=== PATIENT | female | born 1970 ===

== ENCOUNTER 2020-12-11 21:09 | Emergency (ER) | payer OTHER, SELFPAY ==
--- NOTE | 2020-12-11 | ECG_ITS ---
Test Reason : CHEST PAIN Blood Pressure : / mmHG Vent. Rate : 072 BPM Atrial Rate : 072 BPM P-R Int : 156 ms QRS Dur : 086 ms QT Int : 414 ms P-R-T Axes : 067 040 054 degrees QTc Int : 453 ms Normal sinus rhythm Normal ECG No previous ECGs available Referred By: Generic ED Physician Electronically Signed By:YAKELIN VORA
[2020-12-11 21:20] VITALS: BP 180/105; PULSE 81; RESP 16; TEMP 36.6; O2SAT 100; BMI 20.9
[2020-12-11 21:55] LABS: Hematocrit 42.8 % (37-47); Hemoglobin 14.2 g/dl (12.0-16.0); Mean Corpuscular HGB Conc 33.2 g/dl (31.0-35.0); Mean Corpuscular Hemoglobin 29.1 pg (27.0-33.0); Mean Corpuscular Volume 87.7 fL (80-98); Mean Platelet Volume 12.2 fL (9.4-12.3); Platelet Count 155 X10*3/uL (160-400); Red Blood Count 4.88 X10*6/uL (4.20-5.50); Red Cell Distribution Width 13.2 % (11.0-16.0)
[2020-12-11 21:58] LABS: Glucose Urine UA NEG (NEG); Leukocyte Esterase Urine NEG (NEG); Nitrite Urine NEG (NEG); Urine Blood NEG (NEG); Urine Ketones NEG (NEG); Urine Protein NEG (NEG-TRACE)
[2020-12-11 21:59] LABS: Appearance Urine CLEAR; Color Urine YELLOW
[2020-12-11 22:11] LABS: WBC ABN SCTR FOR CBC 1; White Blood Count 7.1 X10*3/uL (4.8-10.8)
[2020-12-11 22:18] LABS: Anion Gap 14 (12-20); Band Neutrophils Percent 0 % (3-5); Basophils Abs Manual 0.1 X10*3/uL (0.0-0.3); Basophils Percent Manual 2 % (0-1); Blood Urea Nitrogen 25 mg/dL (9-16); Calcium 9.2 mg/dL (8.4-10.2); Carbon Dioxide 30 mmol/L (22-29); Chloride 98 mmol/L (96-108); Creatinine Clr Calc Pharmacy 73.9; Eosinophils Absolute Manual 0.1 X10*3/UL (0.0-0.8); Eosinophils Percent Manual 2 % (0-4); Estimated Glomerular Filt Rate > 60; Glucose Random 87 mg/dL (60-115); Lymphocytes Absolute Manual 3.8 X10*3/uL (0.6-4.8); Lymphocytes Percent Manual 53 % (20-40); Monocytes Absolute Manual 0.2 X10*3/uL (0.0-1.2); Monocytes Percent Manual 3 % (2-11); Neutrophils Absolute Manual 2.8 X10*3/uL (2.2-7.9); Neutrophils Percent Manual 40 % (45-73); Potassium 3.7 mmol/L (3.3-5.1); Sodium 138 mmol/L (135-145)
[2020-12-11 22:19] LABS: RBC Morphology NORMAL
[2020-12-11 22:20] LABS: Large Platelet PRESENT; Platelet Estimate SLIGHTLY DECREASED (NORMAL); Platelet Morphology Comment NORMAL
[2020-12-11 22:25] LABS: Troponin-I High Sensitivity < 3.5 ng/L (<3.5-17.0)
== END 2020-12-11 23:30 | disposition left against medical advice (07) ==
PROVIDERS: Emergency Provider Emergency Medicine
DX: R07.9 Chest pain, unspecified (principal)
CPT/HCPCS: 36415; 80048; 81003; 84484; 85007; 85025; 85027; 93005; 99282; 99283

== ENCOUNTER 2020-12-15 09:40 | Emergency (ER) | payer OTHER, SELFPAY ==
--- NOTE | ~2020-12-15 | CT_ITS ---
EXAMINATION: CT ABDOMEN AND PELVIS WITHOUT CONTRAST CLINICAL INFORMATION: Diffuse abdominal pain and constipation COMPARISON: None TECHNIQUE: Multidetector volumetric imaging was performed from the superior aspect of the liver through the pubic symphysis. Sagittal and coronal reformatted images were obtained on the technologist's workstation. This CT examination was performed using dose optimization techniques as appropriate, variously including the following: *Automated exposure control *Adjustment of mA and/or kV according to patient size (this includes techniques or standardized protocols for targeted exams where dose is matched to indication/reason for exam; i.e. extremities or head) *Use of iterative reconstruction technique DLP: 369 mGy-cm FINDINGS: LUNG BASES: There is platelike atelectasis left lower lobe lateral segment. Heart size is normal. LIVER, GALLBLADDER, AND BILIARY TREE: The liver is normal in size, shape, and attenuation. No focal hepatic lesion or biliary ductal dilatation is present. The gallbladder is unremarkable with no evidence of radiopaque gallstones, gallbladder wall thickening, or obvious pericholecystic inflammatory changes. PANCREAS: Unremarkable. SPLEEN: The spleen is unremarkable. A small accessory 9 mm splenule along the anterior border. ADRENAL GLANDS: Unremarkable. KIDNEYS AND URETERS: The kidneys are normal in size, shape, and attenuation. There is a punctate 1 mm radiopaque calculi or calcification upper pole cortex left kidney. No additional radiopaque calculi or calcifications seen. There is no hydronephrosis.There is a partially exophytic 3.1 cm cyst lower pole right kidney. BLADDER: Unremarkable. GASTROINTESTINAL TRACT: There is scattered stool and gas seen throughout the colon without significant distention. The small bowel loops are normal caliber. Appendix is not visualized. Small lymph nodes are seen in the ileocecal mesentery. ABDOMINAL WALL: No significant hernia is appreciated. LYMPH NODES: Normal. VASCULAR: Unremarkable. PELVIC VISCERA: The uterus is midline. No adnexal mass or free fluid seen. There is no abnormal lymph nodes or hernia. OSSEOUS STRUCTURES: Mild degenerative disc changes L5-S1 disc level with ventral spondylosis. CT/CT abdomen pelvis wo con IMPRESSION: No acute process seen in the abdomen. Mild constipation. Small cyst lower pole right kidney.
--- NOTE | ~2020-12-15 | XR_ITS ---
EXAMINATION: XR CHEST CLINICAL INFORMATION: Chest pain COMPARISON: None TECHNIQUE: 2 views of the chest were obtained. FINDINGS: No significant abnormality is noted involving the heart, lungs, mediastinum, bony thorax or soft tissues. XR/XR chest 2V IMPRESSION: Unremarkable examination.
[2020-12-15 11:20] VITALS: BP 155/93; PULSE 62; RESP 18; TEMP 36.7; O2SAT 100; BMI 23.1
--- NOTE | 2020-12-15 11:23 | ECG_ITS ---
Test Reason : CHEST PAIN Blood Pressure : / mmHG Vent. Rate : 061 BPM Atrial Rate : 061 BPM P-R Int : 132 ms QRS Dur : 088 ms QT Int : 428 ms P-R-T Axes : 012 055 052 degrees QTc Int : 430 ms Normal sinus rhythm Normal ECG When compared with ECG of 11-DEC-2020 21:32, No significant change was found Referred By: Generic ED Physician Electronically Signed By:YAKELIN VORA
[2020-12-15 12:21] LABS: MANUAL DIFF FLAG NO
[2020-12-15 12:29] LABS: Basophils Percent Auto 0.4 % (0-2); Eosinophils Absolute Auto 0.1 X10*3/uL (0.0-0.4); Eosinophils Percent Auto 1.1 % (0-4); Hematocrit 41.5 % (37-47); Hemoglobin 13.7 g/dl (12.0-16.0); Imm Gran Abs Auto 0.01 X10*3/uL (0.00-0.03); Imm Gran Pct Auto 0.2 % (0.0-0.4); Lymphocytes Absolute Auto 2.4 X10*3/uL (1.2-4.9); Lymphocytes Percent Auto 52.6 % (20-40); Mean Corpuscular Hemoglobin 28.9 pg (27.0-33.0); Mean Corpuscular Volume 87.6 fL (80-98); Mean Platelet Volume 12.2 fL (9.4-12.3); Monocytes Absolute Auto 0.5 X10*3/uL (0.1-1.2); Monocytes Percent Auto 9.7 % (2-11); Neutrophils Absolute Auto 1.7 X10*3/uL (2.0-8.3); Platelet Count 142 X10*3/uL (160-400); Red Blood Count 4.74 X10*6/uL (4.20-5.50); Red Cell Distribution Width 13.2 % (11.0-16.0); White Blood Count 4.6 X10*3/uL (4.8-10.8)
[2020-12-15 12:43] LABS: Anion Gap 11 (12-20); Blood Urea Nitrogen 19 mg/dL (9-16); Calcium 9.6 mg/dL (8.4-10.2); Carbon Dioxide 34 mmol/L (22-29); Chloride 100 mmol/L (96-108); Creatinine Clr Calc Pharmacy 70.1; Estimated Glomerular Filt Rate > 60; Glucose Random 92 mg/dL (60-115); Potassium 3.5 mmol/L (3.3-5.1); Sodium 141 mmol/L (135-145)
[2020-12-15 12:47] LABS: Troponin-I High Sensitivity < 3.5 ng/L (<3.5-17.0)
--- NOTE | 2020-12-15 13:08 | ED_ITS ---
HPI - General Adult General Chief complaint: General Medical Stated complaint: chest and stomach pain Time Seen by Provider: 12/15/20 12:57 Source: patient Mode of arrival: ambulatory Limitations: no limitations History of Present Illness HPI narrative: 50-year-old female with a past medical history of hypertension, high cholesterol here with intermittent chest and abdominal pain for the last 2 months. Patient tells me that she has had central chest pain which is worse with deep breathing and palpation and is not worsened with exertion or. No associated diaphoresis, nausea, vomiting, shortness of breath, leg swelling or pain. Also complaining of diffuse abdominal pain which is constant, diffuse, sharp. N o vomiting or diarrhea. She does have constipation and her last bowel movement was 3 days ago. Taking cybj-zsn-qhbtzry stool softeners with continued symptoms. No urinary symptoms, fevers, chills Onset (ago): week(s) Related Data Previous Rx's Medication Instructions Recorded docusate sodium [Colace] 100 mg PO BID #20 cap 12/15/20 polyethylene glycol 3350 [Miralax] 17 g PO DAILY #119 g 12/15/20 Allergies Allergy/AdvReac Type Severity Reaction Status Date / Time No Known Allergies Allergy Verified 12/15/20 11:20 [No Known Allergies*] Review of Systems Review of Systems: Yes all other systems are reviewed and are negative Constitutional: Constitutional: Reports no additional constitutional complaints, Denies body ache(s), Denies chills, Denies fever(s), Denies headache(s) and Denies weakness Eyes: Eyes: Reports no additional eye complaints and Denies change in vision ENT: Reports system reviewed and no additional complaints, except as documented, Denies dizziness, Denies headache(s), Denies nasal congestion, Den ies nasal discharge and Denies neck pain Cardiovascular: Cardiovascular: Reports no additional cardiovascular complaints, Reports chest pain, Denies leg edema and Denies dyspnea Respiratory: Respiratory: Reports no additional respiratory complaints, Denies cough and Denies dyspnea Gastrointestinal: Gastrointestinal: Reports no additional gastrointestinal complaints, Reports abdominal pain, Reports constipation, Denies diarrhea, Denies nausea and Denies vomiting Genitourinary: Genitourinary: Reports no additional female genitourinary complaints and Denies urinary incontinence Musculoskeletal: Musculoskeletal: Reports no additional musculoskeletal complaints, Denies back pain, Denies arthralgias, Denies joint swelling, Denies neck pain, Denies numbness and Denies tingling Integumentary/Breasts: Skin/Breast: Reports system reviewed and no additional complaints, except as docu and Denies rash Neurologic: Reports system reviewed and no additional complaints, except as documented, Denies Abnormal speech present, Denies dizziness, Denies headache(s), Denies numbness, Denies tingling and Denies weakness PMFSH Past Medical History Attestation statement: The following information was validated with the patient. Source: old records reviewed and nursing notes reviewed Medical History Hypercholesteremia Hypertension Social History Social History Smoking Status: Never smoker Use of substances other than those prescribed or required for medical reasons: No Advance Directives: No Advance Directives Information Provided: No Physical Exam Vital Signs: Vital Signs: Last Vital Signs Temp 98.1 F 12/15/20 15:58 Pulse 77 12/15/20 15:58 Resp 18 12/15/20 15:58 BP 124/76 12/15/20 15:58 Pulse Ox 98 12/15/20 15:58 Body Mass Index 23.1 Const: General: cooperative, healthy appearing, comfortable and no acute distress Orientation/consciousness: patient oriented x3 Limitations: no limitations HENMT: Head: Yes normal to inspection Ears: hearing grossly normal bilaterally General nose exam: Normal external nose present Face and sinus: Yes normal facial exam Mouth: Normal oral and palatal mucosa present Throat: Yes posterior oropharynx normal Eyes: General: appearance normal, both eyes and all related structures Pupils: Equal, round and reactive pupils present Neck: Neck: Yes normal visual inspection Chest: Chest palpation & inspection: normal inspection of the chest Resp: Effort & Inspection: normal respiratory effort Auscultation: clear to auscultation bilaterally Cardio: Rate: regular rate Rhythm: regular rhythm Peripheral pulses: Peripheral pulses 2+ throughout GI: Inspection: Yes normal to inspection Palpation (GI): Soft to palpation and nontender Auscultation: normal bowel sounds Back/Spine/Pelvis: Thoracic/Lumbar Spine: thoracic and lumbar spine normal to inspection Skin: General skin exam: no rashes or lesions noted Neuro: General: patient oriented x3, no focal motor deficits and normal sensation to monofilament Cranial nerves: Yes Equal, round and reactive pupils present Cognition (Neuro): normal cognition Speech: No Abnormal speech present Gait exam (Neuro): Normal gait present Motor exam (neuro): 5/5 motor strength present throughout Extrem: General: Yes normal to inspection Course Course Course Narrative: 50-year-old female with a past medical history of hypertension and hyperlipidemia here with diffuse abdominal and chest pain for several weeks to months. Also complaining constipation. Will need chest x-ray, EKG, labs, CT A/P. 1600-labs are unremarkable with the exception of mild leukopenia and mild thrombocytopenia. Chest x-ray unremarkable. EKG shows no ischemic changes. CT abdomen and pelvis shows alpr-zo-ftlskqlo constipation with no other acute finding. Repeat abdominal exam is benign. No focal tenderness just mild diffuse tenderness. Chest wall pain is more atypical and more musculoskeletal on exam. Reviewed worrisome signs and symptoms and when to return to the emergency department. Comfortable discharge home. Medical Decision Making MDM Narrative Medical decision making narrative: acs, pna, chest wall pain, pe-less likely ACS with unremarkable EKG, symptoms greater than several weeks and negative troponin. Less likely pneumonia with negative chest x-ray. Less likely PE with no hypoxia or tachycardia and no clinical signs and symptoms of a DVT. SBO, constipation. Less likely SBO with negative CT Medical Records Medical records reviewed: Yes I reviewed the patient's medical records. Lab Data Lab results reviewed: Yes I reviewed the patient's lab results. Result diagrams: 12/15/20 12:06 12/15/20 12:06 Labs: Lab Results 12/15/20 12/15/20 12/15/20 Range/Units 12:06 12:06 12:06 WBC 4.6 L (4.8-10.8) X10*3/uL RBC 4.74 (4.20-5.50) X10*6/uL Hgb 13.7 (12.0-16.0) g/dl Hct 41.5 (37-47) % MCV 87.6 (80-98) fL MCH 28.9 (27.0-33.0) pg MCHC 33.0 (31.0-35.0) g/dl RDW 13.2 (11.0-16.0) % Plt Count 142 L (160-400) X10*3/uL MPV 12.2 (9.4-12.3) fL Immature Gran % (Auto) 0.2 (0.0-0.4) % Neut % (Auto) 36.0 L (45-73) % Lymph % (Auto) 52.6 H (20-40) % [place] % (Auto) 9.7 (2-11) % Eos % (Auto) 1.1 (0-4) % Baso % (Auto) 0.4 (0-2) % Lymph # (Auto) 2.4 (1.2-4.9) X10*3/uL [place] # (Auto) 0.5 (0.1-1.2) X10*3/uL Eos # (Auto) 0.1 (0.0-0.4) X10*3/uL Baso # (Auto) 0.0 (0.0-0.2) X10*3/uL Abs Immat Gran (auto) 0.01 (0.00-0.03) X10*3/uL Absolute Neuts (auto) 1.7 L (2.0-8.3) X10*3/uL Absolute Nucleated RBC 0.000 (0.0-0.012) X10*3/uL Nucleated RBC % (auto) 0.0 (0.0-0.2) /100WBC Hold Blue Top SEE NOTE Sodium 141 (135-145) mmol/L Potassium 3.5 (3.3-5.1) mmol/L Chloride 100 (96-108) mmol/L Carbon Dioxide 34 H (22-29) mmol/L Anion Gap 11 L (12-20) BUN 19 H (9-16) mg/dL Creatinine 0.81 (0.5-1.4) mg/dL Estim Creat Clear Calc 70.1 Estimated GFR > 60 Random Glucose 92 (60-115) mg/dL Calcium 9.6 (8.4-10.2) mg/dL Troponin I High Sens (<3.5-17.0) ng/L Lipase 21 (8-78) U/L Urine Color Urine Appearance Urine pH (5.0-8.0) Ur Specific [place] (1.005-1.025) Urine Protein (NEG-TRACE) MG/DL Urine Glucose (UA) (NEG) MG/DL Urine Ketones (NEG) MG/DL Urine Blood (NEG) Urine Nitrite (NEG) Ur Leukocyte Esterase (NEG) COVID-19 (RAYMUNDO) (Negative) COVID-19 Clin Com 12/15/20 12/15/20 12/15/20 Range/Units 12:06 13:25 13:25 WBC (4.8-10.8) X10*3/uL RBC (4.20-5.50) X10*6/uL Hgb (12.0-16.0) g/dl Hct (37-47) % MCV (80-98) fL MCH (27.0-33.0) pg MCHC (31.0-35.0) g/dl RDW (11.0-16.0) % Plt Count (160-400) X10*3/uL MPV (9.4-12.3) fL Immature Gran % (Auto) (0.0-0.4) % Neut % (Auto) (45-73) % Lymph % (Auto) (20-40) % [place] % (Auto) (2-11) % Eos % (Auto) (0-4) % Baso % (Auto) (0-2) % Lymph # (Auto) (1.2-4.9) X10*3/uL [place] # (Auto) (0.1-1.2) X10*3/uL Eos # (Auto) (0.0-0.4) X10*3/uL Baso # (Auto) (0.0-0.2) X10*3/uL Abs Immat Gran (auto) (0.00-0.03) X10*3/uL Absolute Neuts (auto) (2.0-8.3) X10*3/uL Absolute Nucleated RBC (0.0-0.012) X10*3/uL Nucleated RBC % (auto) (0.0-0.2) /100WBC Hold Blue Top Sodium (135-145) mmol/L Potassium (3.3-5.1) mmol/L Chloride (96-108) mmol/L Carbon Dioxide (22-29) mmol/L Anion Gap (12-20) BUN (9-16) mg/dL Creatinine (0.5-1.4) mg/dL Estim Creat Clear Calc Estimated GFR Random Glucose (60-115) mg/dL Calcium (8.4-10.2) mg/dL Troponin I High Sens < 3.5 (<3.5-17.0) ng/L Lipase (8-78) U/L Urine Color YELLOW Urine Appearance CLEAR Urine pH 6.5 (5.0-8.0) Ur Specific [place] 1.025 (1.005-1.025) Urine Protein NEG (NEG-TRACE) MG/DL Urine Glucose (UA) NEG (NEG) MG/DL Urine Ketones NEG (NEG) MG/DL Urine Blood NEG (NEG) Urine Nitrite NEG (NEG) Ur Leukocyte Esterase NEG (NEG) COVID-19 (RAYMUNDO) Negative (Negative) COVID-19 Clin Com See Note Imaging Data Chest x-ray: Attestation: I personally reviewed and interpreted this imaging study as follows: Radiologist's impression: EXAMINATION: XR CHEST CLINICAL INFORMATION: Chest pain COMPARISON: None TECHNIQUE: 2 views of the chest were obtained. FINDINGS: No significant abnormality is noted involving the heart, lungs, mediastinum, bony thorax or soft tissues. XR/XR chest 2V IMPRESSION: Unremarkable examination. CT scan - abdomen: Attestation: I personally reviewed and interpreted this imaging study as follows: Radiologist's impression: EXAMINATION: CT ABDOMEN AND PELVIS WITHOUT CONTRAST CLINICAL INFORMATION: Diffuse abdominal pain and constipation COMPARISON: None TECHNIQUE: Multidetector volumetric imaging was performed from the superior aspect of the liver through the pubic symphysis. Sagittal and coronal reformatted images were obtained on the technologist's workstation. This CT examination was performed using dose optimization techniques as appropriate, variously including the following: *Automated exposure control *Adjustment of mA and/or kV according to patient size (this includes techniques or standardized protocols for targeted exams where dose is matched to indication/reason for exam; i.e. extremities or head) *Use of iterative reconstruction technique DLP: 369 mGy-cm FINDINGS: LUNG BASES: There is platelike atelectasis left lower lobe lateral segment. Heart size is normal. LIVER, GALLBLADDER, AND BILIARY TREE: The liver is normal in size, shape, and attenuation. No focal hepatic lesion or biliary ductal dilatation is present. The gallbladder is unremarkable with no evidence of radiopaque gallstones, gallbladder wall thickening, or obvious pericholecystic inflammatory changes. PANCREAS: Unremarkable. SPLEEN: The spleen is unremarkable. A small accessory 9 mm splenule along the anterior border. ADRENAL GLANDS: Unremarkable. KIDNEYS AND URETERS: The kidneys are normal in size, shape, and attenuation. There is a punctate 1 mm radiopaque calculi or calcification upper pole cortex left kidney. No additional radiopaque calculi or calcifications seen. There is no hydronephrosis.There is a partially exophytic 3.1 cm cyst lower pole right kidney. BLADDER: Unremarkable. GASTROINTESTINAL TRACT: There is scattered stool and gas seen throughout the colon without significant distention. The small bowel loops are normal caliber. Appendix is not visualized. Small lymph nodes are seen in the ileocecal mesentery. ABDOMINAL WALL: No significant hernia is appreciated. LYMPH NODES: Normal. VASCULAR: Unremarkable. PELVIC VISCERA: The uterus is midline. No adnexal mass or free fluid seen. There is no abnormal lymph nodes or hernia. OSSEOUS STRUCTURES: Mild degenerative disc changes L5-S1 disc level with ventral spondylosis. CT/CT abdomen pelvis wo con IMPRESSION: No acute process seen in the abdomen. Mild constipation. Small cyst lower pole right kidney. ECG Data Attestation: I personally reviewed and interpreted this ECG as follows: Interpretation: Normal sinus rhythm Normal ECG When compared with ECG of 11-DEC-2020 21:32, No significant change was found rate 61, normal MO, normal QRS, normal QT Discharge Plan Discharge Clinical Impression: Chest wall pain, Constipation Patient Disposition: Home, Self-Care Instructions: Constipation (ED), Chest Wall Pain (ED) Additional Instructions: Drink plenty of fluids like prune juice and pear juice Eat fiber Follow-up with your primary care doctor as discussed Prescriptions: New polyethylene glycol 3350 [Miralax] 17 gram/dose powder 17 g PO DAILY Qty: 119 RF: 0 docusate sodium [Colace] 100 mg capsule 100 mg PO BID Qty: 20 RF: 0 Interventions: ED Discharge Assessment Last Done: 12/15/20 15:59 Discharge Date/Time: 12/15/20 15:59
[2020-12-15 13:18] VITALS: BP 141/81; PULSE 60; RESP 18; O2SAT 100
[2020-12-15 13:30] LABS: Lipase 21 U/L (8-78)
[2020-12-15 13:41] LABS: Appearance Urine CLEAR; Color Urine YELLOW; Glucose Urine UA NEG (NEG); Leukocyte Esterase Urine NEG (NEG); Nitrite Urine NEG (NEG); PH 6.5 (5.0-8.0); Specific Gravity - Urine 1.025 (1.005-1.025); Urine Blood NEG (NEG); Urine Ketones NEG (NEG); Urine Protein NEG (NEG-TRACE)
[2020-12-15 14:08] LABS: COVID-19 Test Negative (Negative)
[2020-12-15 15:58] VITALS: BP 124/76; PULSE 77; RESP 18; TEMP 36.7; O2SAT 98
== END 2020-12-15 15:59 | disposition home or self-care (01) ==
PROVIDERS: Nurse Practitioner Family; Emergency Provider Emergency Medicine
DX: R07.89 Other chest pain (principal); K59.00 Constipation, unspecified; I10 Essential (primary) hypertension; Z20.822 Contact with and (suspected) exposure to COVID-19
CPT/HCPCS: 36415; 71046; 74176; 80048; 81003; 83690; 84484; 85025; 87635; 93005; 99284

== ENCOUNTER 2021-10-15 14:02 | Outpatient (REF) | payer OTHER, SELFPAY ==
--- NOTE | ~2021-10-15 | MM_ITS ---
EXAMINATION: MM SCREENING DIGITAL BREAST TOMOSYNTHESIS, BILATERAL CLINICAL INFORMATION: Screening. Asymptomatic. The lifetime risk of breast cancer based on the Tyrer-Cuzick Model is 5.6%. COMPARISON: Mammography: April 30, 2020 and studies dating back to January 18, 2014 TECHNIQUE: Digital breast tomosynthesis is performed in both the craniocaudal and mediolateral oblique views along with computer-aided detection (CAD). Synthesized 2D images are generated from the tomosynthesis. FINDINGS: The breasts are extremely dense, which lowers the sensitivity of mammography (ACR BI-RADS breast composition Category d). There are no significant masses, abnormal calcifications, or other abnormalities. MM/MM tomosynthesis screening BI IMPRESSION: There are no significant changes from prior study. ASSESSMENT: BI-RADS 1: Negative RECOMMENDATION: Routine annual mammography screening. This patient's information was entered into a reminder system with a target due date for their next mammogram.
== END 2021-10-15 14:03 | disposition home or self-care (01) ==
LOC: HO.MAMMO 14:02
PROVIDERS: PCP Internal Medicine; Visit Provider Internal Medicine
DX: Z12.31 Encounter for screening mammogram for malignant neoplasm of breast (principal)
CPT/HCPCS: 77063; 77067

== ENCOUNTER 2022-10-18 09:12 | Outpatient (REF) | payer OTHER, SELFPAY ==
--- NOTE | ~2022-10-18 | MM_ITS ---
EXAMINATION: MM SCREENING DIGITAL BREAST TOMOSYNTHESIS, BILATERAL CLINICAL INFORMATION: Screening. Asymptomatic. The lifetime risk of breast cancer based on the Tyrer-Cuzick Model is 6%. COMPARISON: Mammography: 10/15/2021, 04/30/2020, 04/25/2019, 03/28/2018, 02/28/2017 TECHNIQUE: Digital breast tomosynthesis is performed in both the craniocaudal and mediolateral oblique views along with computer-aided detection (CAD). Synthesized 2D images are generated from the tomosynthesis. FINDINGS: The breasts are heterogeneously dense, which may obscure small masses (ACR BI-RADS breast composition Category c). There is fibronodular parenchymal pattern, left side similar to prior studies. Neither breast shows abnormal calcifications. The axilla and skin contours are unremarkable. Right CC view has questionable asymmetric density central outer breast 6.5 cm from nipple. Tomography suggests probable summation artifact. Patient will be recalled to fully characterize. MM/MM tomosynthesis screening BI IMPRESSION: Right: -Subtle asymmetric density central outer breast, suspected summation artifact. Left: -No mammographic evidence of malignancy. ASSESSMENT: BI-RADS 0: Incomplete - Need Additional Imaging Evaluation RECOMMENDATION: 1. Additional views of the right breast (spot CC, rolled CC x2 2. Targeted ultrasound if warranted after review of the additional views. 3. Radiology department staff will contact the patient for additional imaging. This patient's information was entered into a reminder system with a target due date for their next mammogram.
== END 2022-10-18 09:13 | disposition home or self-care (01) ==
LOC: HO.MAMMO 09:12
PROVIDERS: Visit Provider Internal Medicine
DX: Z12.31 Encounter for screening mammogram for malignant neoplasm of breast (principal)
CPT/HCPCS: 77063; 77067

== ENCOUNTER 2022-10-29 09:13 | Outpatient (REF) | payer OTHER, SELFPAY ==
--- NOTE | ~2022-10-29 | US_ITS ---
EXAMINATION: MM DIAGNOSTIC DIGITAL BREAST TOMOSYNTHESIS, RIGHT Targeted right breast ultrasound CLINICAL INFORMATION: Asymmetry lateral aspect of the right breast. COMPARISON: Mammography: October 18, 2022 and studies dating back to February 24, 2016. TECHNIQUE: Digital breast tomosynthesis is performed. 2D images are generated from the tomosynthesis. The following views are obtained: Rolled craniocaudal views and spot compression craniocaudal view. Targeted right breast ultrasound. FINDINGS: The breasts are extremely dense, which lowers the sensitivity of mammography (ACR BI-RADS breast composition Category d). Additional views do not definitely demonstrate region of irregular parenchymal asymmetry; however, with the very dense breast parenchyma present a density could be obscured. Targeted right breast ultrasound to the lateral aspect did not demonstrate any abnormal cystic or solid mass. No region of abnormal distal sound shadowing. No edematous change within the parenchyma is seen. Results are discussed with the patient at time of visit. US/US breast RT limited IMPRESSION: No mammographic evidence of malignancy. Right breast density appears to represent superimposition of fibroglandular tissue. ASSESSMENT: BI-RADS 1: Negative RECOMMENDATION: Routine annual mammography screening due in 12 months. This patient's information was entered into a reminder system with a target due date for their next mammogram.
== END 2022-10-29 09:14 | disposition home or self-care (01) ==
LOC: HO.MAMMO 09:13
PROVIDERS: PCP Internal Medicine; Visit Provider Internal Medicine
DX: N64.89 Other specified disorders of breast (principal)
CPT/HCPCS: 76642; 77061; 77065

== ENCOUNTER 2023-01-10 14:01 | Emergency (ER) | payer OTHER, SELFPAY ==
--- NOTE | ~2023-01-10 | CT_ITS ---
EXAMINATION: CT SOFT TISSUE NECK WITH CONTRAST CLINICAL INFORMATION: Odynophagia, right-sided neck pain COMPARISON: None. TECHNIQUE: Following the administration of 60 mL of Omnipaque 350 intravenous contrast, helical imaging was performed in the axial plane with generation of coronal and sagittal reformatted images. This CT examination was performed using dose optimization techniques as appropriate, variously including the following: *Automated exposure control. *Adjustment of mA and/or kV according to patient size (this includes techniques or standardized protocols for targeted exams where dose is matched to indication/reason for exam; i.e. extremities or head). *Use of iterative reconstruction technique. DLP: 376.59 mGy-cm mGy-cm. FINDINGS: Nasopharynx/skull base: The fat planes of the skull base and soft tissues of the nasopharynx are unremarkable. Tiny mucous retention cyst along the anterior wall of the left maxillary sinus. The mastoid air cells are well aerated. The temporomandibular joints are normal. Suprahyoid neck: The oropharynx, oral cavity, and bilateral salivary gland tissues are unremarkable. Infrahyoid neck: The hypopharynx is unremarkable. The vocal cords are adducted at time of imaging limiting assessment of the glottis. Asymmetry of the thyroid cartilage with inferiorly displaced left thyroid lamina relative to the right. Thyroid: The thyroid gland is normal. Lymph nodes: There is no cervical chain lymphadenopathy. Lung apices: The partially visualized lung apices are clear. Vascular structures: Abnormal enhancement of the vascular structures of the neck, noting partial retropharyngeal course of the distal left cervical internal carotid artery. Osseous structures: The osseous structures are intact without suspicious focal lesion. Minimal cervical spondylosis without significant spinal canal or neural foraminal narrowing at any level. Other: The imaged portions of the brain parenchyma are unremarkable. CT/CT soft tissue neck w IV con IMPRESSION: The vocal cords are adducted at time of imaging limiting assessment of the glottis. Asymmetry of the thyroid cartilage with inferiorly displaced left thyroid lamina relative to the right. Otherwise, the aerodigestive tract is unremarkable. Minimal cervical spondylosis without significant spinal canal or neural foraminal stenosis at any level.
[2023-01-10 14:43] VITALS: BP 145/94; PULSE 88; RESP 20; TEMP 36.7; O2SAT 99; BMI 22.3
--- NOTE | 2023-01-10 14:51 | ED.GENADULT ---
HPI - General Adult General Chief complaint: General Medical <TURNER Omalley - Last Filed: 01/12/23 16:32> Stated complaint: Trouble swallowing-something stuck in throat <TURNER Omalley - Last Filed: 01/12/23 16:32> Time Seen by Provider: 01/10/23 19:21 <TURNER Omalley - Last Filed: 01/12/23 16:32> Source: patient <Guido Cramer MD - Last Filed: 01/12/23 23:41> Mode of arrival: ambulatory <Guido Cramer MD - Last Filed: 01/12/23 23:41> Limitations: no limitations <Guido Cramer MD - Last Filed: 01/12/23 23:41> History of Present Illness HPI narrative: Patient complaining of pain right side of the throat for last 2 months has seen ENT specialist plan to do scope next visit patient feels pain <Guido Cramer MD - Last Filed: 01/12/23 23:41> Related Data Home medications: Previous Rx's Medication Instructions Recorded docusate sodium 100 mg capsule 100 mg PO BID #20 caps 12/15/20 (Colace) polyethylene glycol 3350 17 17 g PO DAILY #119 grams 12/15/20 gram/dose oral powder (Miralax) <TURNER Omalley - Last Filed: 01/12/23 16:32> Allergies/adverse reactions: Allergies Allergy/AdvReac Type Severity Reaction Status Date / Time No Known Allergies Allergy Verified 12/15/20 11:20 [No Known Allergies*] <TURNER Omalley - Last Filed: 01/12/23 16:32> [facility] Past Medical History Medical History: Medical History Hypercholesteremia Hypertension <TURNER Omalley - Last Filed: 01/12/23 16:32> Social History Social History: Social History Advance Directives: No Advance Directives Information Provided: No <TURNER Omalley - Last Filed: 01/12/23 16:32> Physical Exam ED Vital Signs: Vital Signs - 24 hr 01/10/23 14:43 Temperature 98.0 F Pulse Rate 88 Respiratory Rate 20 Blood Pressure 145/94 H Pulse Oximetry 99 Oxygen Delivery Method Room Air BMI result Body Mass Index 22.3 <TURNER Omalley - Last Filed: 01/12/23 16:32> Vital Signs - 24 hr 01/10/23 14:43 Temperature 98.0 F Pulse Rate 88 Respiratory Rate 20 Blood Pressure 145/94 H Pulse Oximetry 99 Oxygen Delivery Method Room Air BMI result Body Mass Index 22.3 <Guido Cramer MD - Last Filed: 01/12/23 23:41> Course Course Course Narrative: RME - 52 yo female presenting to the ER for evaluation of right sided neck and throat pain alone with difficult and painful swallowing for the last 2 weeks. Can tolerate liquids and soft solids like oatmeal and jello. No vomiting. She reports she feels food sensation in the throat, worse at night. No evidence of obstruction given her history. She would like imaging to assess for abnormality. Plan: CT soft tissue of the neck w/ IV contrast. <TURNER Omalley - Last Filed: 01/12/23 16:32> Medications Administered Discontinued Medications Generic Name Dose Route Start Last Admin Trade Name Freq PRN Reason Stop Dose Admin Iohexol 100 ml 01/10/23 19:04 01/10/23 19:05 Iohexol 350 Mg/Ml 100 Ml Infus..Btl IV 01/10/23 19:05 60 ml ONCE ONE Administration <TURNER Omalley - Last Filed: 01/12/23 16:32> Medications Administered Discontinued Medications Generic Name Dose Route Start Last Admin Trade Name Freq PRN Reason Stop Dose Admin Iohexol 100 ml 01/10/23 19:04 01/10/23 19:05 Iohexol 350 Mg/Ml 100 Ml Infus..Btl IV 01/10/23 19:05 60 ml ONCE ONE Administration <Guido Cramer MD - Last Filed: 01/12/23 23:41> Medical Decision Making Lab Data Result Diagrams: 01/10/23 16:49 01/10/23 16:49 <TURNER Omalley - Last Filed: 01/12/23 16:32> Labs: Lab Results 01/10/23 01/10/23 Range/Units 16:49 16:49 WBC 5.7 (4.8-10.8) X10*3/uL RBC 4.28 (4.20-5.50) X10*6/uL Hgb 12.1 (12.0-16.0) g/dl Hct 37.4 (37.0-47.0) % MCV 87.4 (80.0-98.0) fL MCH 28.3 (27.0-33.0) pg MCHC 32.4 (31.0-35.0) g/dl RDW 13.4 (11.0-16.0) % Plt Count 139 L (160-400) X10*3/uL MPV 12.2 (9.4-12.3) fL Immature Gran % (Auto) Cancelled Neut % (Auto) Cancelled Lymph % (Auto) Cancelled [place] % (Auto) Cancelled Eos % (Auto) Cancelled Baso % (Auto) Cancelled Lymph # (Auto) Cancelled [place] # (Auto) Cancelled Eos # (Auto) Cancelled Baso # (Auto) Cancelled Abs Immat Gran (auto) Cancelled Absolute Neuts (auto) Cancelled Absolute Nucleated RBC 0.000 (0.0-0.012) X10*3/uL Nucleated RBC % (auto) 0.0 (0.0-0.2) /100WBC Neutrophils % (Manual) 31 L (45-73) % Band Neutrophils % 0 L (3-5) % Lymphocytes % (Manual) 58 H (20-40) % Atypical Lymphs % (Man) 3 (0-6) % Monocytes % (Manual) 7 (2-11) % Basophils % (Manual) 1 (0-2) % Abs Neuts (Manual) 1.8 L (2.0-8.3) X10*3/uL Lymphocytes # (Manual) 3.3 (1.2-4.9) X10*3/uL Atyp Lymphs # (Manual) 0.2 x10*3/uL Monocytes # (Manual) 0.4 (0.1-1.2) X10*3/uL Basophils # (Manual) 0.1 (0.0-0.2) X10*3/uL Platelet Estimate NORMAL (NORMAL) Plt Morphology Comment NORMAL RBC Morphology NORMAL Sodium 144 (135-145) mmol/L Potassium 4.3 D (3.3-5.1) mmol/L Chloride 108 (96-108) mmol/L Carbon Dioxide 27 (22-29) mmol/L Anion Gap 13 (12-20) BUN 18 H (9-16) mg/dL Creatinine 0.79 (0.5-1.4) mg/dL Estim Creat Clear Calc 70.3 Estimated GFR > 60 Random Glucose 74 (60-115) mg/dL Calcium 9.4 (8.4-10.2) mg/dL <TURNER Omalley - Last Filed: 01/12/23 16:32> Lab Results 01/10/23 01/10/23 Range/Units 16:49 16:49 WBC 5.7 (4.8-10.8) X10*3/uL RBC 4.28 (4.20-5.50) X10*6/uL Hgb 12.1 (12.0-16.0) g/dl Hct 37.4 (37.0-47.0) % MCV 87.4 (80.0-98.0) fL MCH 28.3 (27.0-33.0) pg MCHC 32.4 (31.0-35.0) g/dl RDW 13.4 (11.0-16.0) % Plt Count 139 L (160-400) X10*3/uL MPV 12.2 (9.4-12.3) fL Immature Gran % (Auto) Cancelled Neut % (Auto) Cancelled Lymph % (Auto) Cancelled [place] % (Auto) Cancelled Eos % (Auto) Cancelled Baso % (Auto) Cancelled Lymph # (Auto) Cancelled [place] # (Auto) Cancelled Eos # (Auto) Cancelled Baso # (Auto) Cancelled Abs Immat Gran (auto) Cancelled Absolute Neuts (auto) Cancelled Absolute Nucleated RBC 0.000 (0.0-0.012) X10*3/uL Nucleated RBC % (auto) 0.0 (0.0-0.2) /100WBC Neutrophils % (Manual) 31 L (45-73) % Band Neutrophils % 0 L (3-5) % Lymphocytes % (Manual) 58 H (20-40) % Atypical Lymphs % (Man) 3 (0-6) % Monocytes % (Manual) 7 (2-11) % Basophils % (Manual) 1 (0-2) % Abs Neuts (Manual) 1.8 L (2.0-8.3) X10*3/uL Lymphocytes # (Manual) 3.3 (1.2-4.9) X10*3/uL Atyp Lymphs # (Manual) 0.2 x10*3/uL Monocytes # (Manual) 0.4 (0.1-1.2) X10*3/uL Basophils # (Manual) 0.1 (0.0-0.2) X10*3/uL Platelet Estimate NORMAL (NORMAL) Plt Morphology Comment NORMAL RBC Morphology NORMAL Sodium 144 (135-145) mmol/L Potassium 4.3 D (3.3-5.1) mmol/L Chloride 108 (96-108) mmol/L Carbon Dioxide 27 (22-29) mmol/L Anion Gap 13 (12-20) BUN 18 H (9-16) mg/dL Creatinine 0.79 (0.5-1.4) mg/dL Estim Creat Clear Calc 70.3 Estimated GFR > 60 Random Glucose 74 (60-115) mg/dL Calcium 9.4 (8.4-10.2) mg/dL <Guido Cramer MD - Last Filed: 01/12/23 23:41> Discharge Plan Discharge Clinical Impression: Pain in throat <TURNER Omalley - Last Filed: 01/12/23 16:32> Patient Disposition: Home, Self-Care <TURNER Omalley - Last Filed: 01/12/23 16:32> Instructions: Neck Pain (ED) <TURNER Omalley - Last Filed: 01/12/23 16:32> Additional Instructions: Follow-up with your ENT specialist as scheduled <TURNER Omalley - Last Filed: 01/12/23 16:32> Prescriptions: No Action polyethylene glycol 3350 [Miralax] 17 gram/dose powder 17 g PO DAILY Qty: 119 0RF docusate sodium [Colace] 100 mg capsule 100 mg PO BID Qty: 20 0RF <TURNER Omalley - Last Filed: 01/12/23 16:32> Interventions: ED Discharge Assessment Last Done: 01/10/23 20:13 <TURNER Omalley - Last Filed: 01/12/23 16:32> Discharge Date/Time: 01/10/23 20:14 <TURNER Omalley - Last Filed: 01/12/23 16:32>
[2023-01-10 16:55] LABS: PLT CLUMP 1
[2023-01-10 16:57] LABS: Red Cell Distribution Width 13.4 % (11.0-16.0)
[2023-01-10 16:58] VITALS: BP 153/82; PULSE 72; RESP 16; TEMP 36.8; O2SAT 87
--- NOTE | 2023-01-10 16:59 | MHC.EDTECH ---
pt blood drawn and sent to lab,pt was re vitals in triage .
[2023-01-10 17:01] LABS: Mean Corpuscular HGB Conc 32.4 g/dl (31.0-35.0)
[2023-01-10 17:03] LABS: Hematocrit 37.4 % (37.0-47.0); Hemoglobin 12.1 g/dl (12.0-16.0); Mean Corpuscular Hemoglobin 28.3 pg (27.0-33.0); Mean Corpuscular Volume 87.4 fL (80.0-98.0); Mean Platelet Volume 12.2 fL (9.4-12.3); Red Blood Count 4.28 X10*6/uL (4.20-5.50)
[2023-01-10 17:05] LABS: WBC ABN SCTR FOR CBC 1
[2023-01-10 17:06] LABS: Platelet Count 139 X10*3/uL (160-400)
[2023-01-10 17:10] LABS: Anion Gap 13 (12-20); Blood Urea Nitrogen 18 mg/dL (9-16); Calcium 9.4 mg/dL (8.4-10.2); Carbon Dioxide 27 mmol/L (22-29); Chloride 108 mmol/L (96-108); Creatinine Clr Calc Pharmacy 70.3; Estimated Glomerular Filt Rate > 60; Glucose Random 74 mg/dL (60-115); Potassium 4.3 mmol/L (3.3-5.1); Sodium 144 mmol/L (135-145)
[2023-01-10 17:50] LABS: Atypical Lymphs Percent Manual 3 % (0-6); Basophils Percent Manual 1 % (0-2); Lymphocytes Percent Manual 58 % (20-40); Monocytes Percent Manual 7 % (2-11); Neutrophils Percent Manual 31 % (45-73)
[2023-01-10 17:51] LABS: Platelet Estimate NORMAL (NORMAL); Platelet Morphology Comment NORMAL; RBC Morphology NORMAL
[2023-01-10 17:52] LABS: Atypical Lymph Absolute Manual 0.2 x10*3/uL; Basophils Abs Manual 0.1 X10*3/uL (0.0-0.2); Lymphocytes Absolute Manual 3.3 X10*3/uL (1.2-4.9); Monocytes Absolute Manual 0.4 X10*3/uL (0.1-1.2); White Blood Count 5.7 X10*3/uL (4.8-10.8)
[2023-01-10 17:54] LABS: Band Neutrophils Percent 0 % (3-5); Neutrophils Absolute Manual 1.8 X10*3/uL (2.0-8.3)
[2023-01-10] MEDS: iohexoL 350 MG/ML 100 ML INFUS..BTL IV (19:05)
--- NOTE | 2023-01-10 20:08 | ED.GENADULT ---
HPI - General Adult General Chief complaint: General Medical Stated complaint: Trouble swallowing-something stuck in throat Time Seen by Provider: 01/10/23 19:21 Source: patient Mode of arrival: ambulatory Limitations: no limitations History of Present Illness HPI narrative: Patient was significant past medical history noticed pain in the right side of the neck/throat for last 2 months already seen ENT specialist comes here as she wants to know what is going on and she is worried about it patient has a planned scheduled visit next week to see the ENT no speech problem no sore throat no gland enlargement no fever or chills it hurts when patient swallowed but able to swallow solids and liquid Related Data Previous Rx's Medication Instructions Recorded docusate sodium 100 mg capsule 100 mg PO BID #20 caps 12/15/20 (Colace) polyethylene glycol 3350 17 17 g PO DAILY #119 grams 12/15/20 gram/dose oral powder (Miralax) Allergies Allergy/AdvReac Type Severity Reaction Status Date / Time No Known Allergies Allergy Verified 12/15/20 11:20 [No Known Allergies*] Review of Systems Review of Systems: Yes all other systems are reviewed and are negative [facility] Past Medical History Medical History Hypercholesteremia Hypertension Social History Social History Advance Directives: No Advance Directives Information Provided: No Physical Exam ED Vital Signs: Vital Signs - 24 hr 01/10/23 14:43 01/10/23 16:58 Temperature 98.0 F 98.2 F Pulse Rate 88 72 Respiratory Rate 20 16 Blood Pressure 145/94 H 153/82 H Pulse Oximetry 99 87 L Oxygen Delivery Method Room Air Room Air BMI result Body Mass Index 22.3 Appearance: Alert. Oriented X3. No acute distress. ENT: Pharynx normal. Oral Mucosa moist Neck: Normal inspection. Neck supple. No lymph node enlargement no stridor tonsils are normal CVS: Normal heart rate and rhythm. Pulses normal. Respiratory: No respiratory distress. Equal air entry bilateral, no wheezing/rales/rhonchi Abdomen: Soft and nontender. Bowel sounds are present, no mass palpable, no CVA tenderness Skin: Skin warm and dry. Normal skin color. Normal skin turgor. Extremities: No lower extremity edema. No calf tenderness Neuro: Oriented X 3. No motor deficit. Medications Administered Discontinued Medications Generic Name Dose Route Start Last Admin Trade Name Marco A PRN Reason Stop Dose Admin Iohexol 100 ml 01/10/23 19:04 01/10/23 19:05 Iohexol 350 Mg/Ml 100 Ml Infus..Btl IV 01/10/23 19:05 60 ml ONCE ONE Administration Medical Decision Making Medical Decision Making [facility] Narrative: Patient with stable labs CT scan negative for any acute pathology advised patient to follow with ENT Lab Data [facility] Lab Attestation statement: I reviewed the patient's lab results. 01/10/23 16:49 01/10/23 16:49 Labs: Lab Results 01/10/23 01/10/23 Range/Units 16:49 16:49 WBC 5.7 (4.8-10.8) X10*3/uL RBC 4.28 (4.20-5.50) X10*6/uL Hgb 12.1 (12.0-16.0) g/dl Hct 37.4 (37.0-47.0) % MCV 87.4 (80.0-98.0) fL MCH 28.3 (27.0-33.0) pg MCHC 32.4 (31.0-35.0) g/dl RDW 13.4 (11.0-16.0) % Plt Count 139 L (160-400) X10*3/uL MPV 12.2 (9.4-12.3) fL Immature Gran % (Auto) Cancelled Neut % (Auto) Cancelled Lymph % (Auto) Cancelled [place] % (Auto) Cancelled Eos % (Auto) Cancelled Baso % (Auto) Cancelled Lymph # (Auto) Cancelled [place] # (Auto) Cancelled Eos # (Auto) Cancelled Baso # (Auto) Cancelled Abs Immat Gran (auto) Cancelled Absolute Neuts (auto) Cancelled Absolute Nucleated RBC 0.000 (0.0-0.012) X10*3/uL Nucleated RBC % (auto) 0.0 (0.0-0.2) /100WBC Neutrophils % (Manual) 31 L (45-73) % Band Neutrophils % 0 L (3-5) % Lymphocytes % (Manual) 58 H (20-40) % Atypical Lymphs % (Man) 3 (0-6) % Monocytes % (Manual) 7 (2-11) % Basophils % (Manual) 1 (0-2) % Abs Neuts (Manual) 1.8 L (2.0-8.3) X10*3/uL Lymphocytes # (Manual) 3.3 (1.2-4.9) X10*3/uL Atyp Lymphs # (Manual) 0.2 x10*3/uL Monocytes # (Manual) 0.4 (0.1-1.2) X10*3/uL Basophils # (Manual) 0.1 (0.0-0.2) X10*3/uL Platelet Estimate NORMAL (NORMAL) Plt Morphology Comment NORMAL RBC Morphology NORMAL Sodium 144 (135-145) mmol/L Potassium 4.3 D (3.3-5.1) mmol/L Chloride 108 (96-108) mmol/L Carbon Dioxide 27 (22-29) mmol/L Anion Gap 13 (12-20) BUN 18 H (9-16) mg/dL Creatinine 0.79 (0.5-1.4) mg/dL Estim Creat Clear Calc 70.3 Estimated GFR > 60 Random Glucose 74 (60-115) mg/dL Calcium 9.4 (8.4-10.2) mg/dL Discharge Plan Discharge Clinical Impression: Pain in throat Patient Disposition: Home, Self-Care Instructions: Neck Pain (ED) Additional Instructions: Follow-up with your ENT specialist as scheduled Prescriptions: No Action polyethylene glycol 3350 [Miralax] 17 gram/dose powder 17 g PO DAILY Qty: 119 0RF docusate sodium [Colace] 100 mg capsule 100 mg PO BID Qty: 20 0RF
== END 2023-01-10 20:14 | disposition home or self-care (01) ==
PROVIDERS: Physician Assistant; Emergency Provider Internal Medicine; PCP Internal Medicine
DX: J02.9 Acute pharyngitis, unspecified (principal); E78.00 Pure hypercholesterolemia, unspecified; I10 Essential (primary) hypertension; Z79.899 Other long term (current) drug therapy
CPT/HCPCS: 36415; 70491; 80048; 85007; 85025; 85027; 99282; 99284; Q9967

== ENCOUNTER 2023-07-13 07:26 | Outpatient (AMB) | payer OTHER, SELFPAY ==
--- NOTE | 2023-07-13 07:41 | MHC.PC.OV ---
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 ( Bp medications ) Intake Note: Pt is here today as a New Patient to [facility] care Allergies No Known Allergies [No Known Allergies*] Allergy (Verified 07/13/23 07:42) Medication List - Last Reconciled 07/13/23 by Zeny Wick MD No Known Home Meds Tobacco use date assessed: 07/13/23 Dental Screening Did you have a dental visit in the last 12 months?: Yes Did you have a dental problem in the last 6 months where you did not have access to dental care?: Yes Was dental information given to patient?: Patient has dentist HPI HPI Comments History of Present Illness Details Pt presents for [employer]. Patient used to take medications for hypertension but not for the last 6 months. She has been monitor her blood pressure at home and reports normal readings. [facility] Medical History Hypercholesteremia Hypertension Family History (Updated 07/13/23 @ 08:09 by Zeny Wick MD) Father No problems noted. 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 1 adult daughter Housing: House Patient Tobacco Use Status: Former Tobacco user e-Cigarette/Vaping Use: Never Used service: No Current occupational status: employed Cognitive needs: No Hearing needs: No Vision needs: No Questionnaire PHQ-9 Over the last 2 weeks, how often have you been bothered by any of the following problems? 1. Little interest or pleasure in doing things: not at all 2. Feeling down, depressed, or hopeless: not at all 3. Trouble falling or staying asleep, or sleeping too much: not at all 4. Feeling tired or having little energy: not at all 5. Poor appetite or overeating: not at all 6. Feeling bad about yourself - or that you are a failure or have let yourself or your family down: not at all 7. Trouble concentrating on things, such as reading the newspaper or watching television: not at all 8. Moving or speaking so slowly that other people could have noticed. Or the opposite - being so fidgety or restless that you have been moving around a lot more than usual: not at all 9. Thoughts that you would be better off or of hurting yourself in some way: not at all Total score: 0 Depression Screening Interpretation: Negative Source: Developed by Drs. Emigdio Nash, Roxanne Carson, Curtis Pena and colleagues, with an educational renae from [employer]. Thrive Questionnaire Date Thrive assessed: 07/13/23 I am a: Patient What is your living situation today?: I have a steady place to live Within the past 12 months, did the food you bought not last and you didn't have the money to get more?: Never true Within the past 12 months, did you worry whether your food would run out before you got money to buy more?: Never true Do you have trouble paying for medicines?: No Do you have trouble getting transportation to medical appointments?: No Do you have trouble paying your heating and electricity bill?: No Do you have trouble taking care of your child, family member or friend?: No Do you have trouble with day-to-day activities such as bathing, preparing meals, shopping, managing finances, etc.?: No Are you currently unemployed and looking for a job?: No Are you interested in more education?: No AUDIT C Alcohol Use Questionnaire (AUDIT-C) 1. How often do you have a drink containing alcohol?: Monthly or less 2. How many drinks containing alcohol do you have on a typical day when you are drinking?: 1 or 2 3. How often do you have six or more drinks on one occasion?: Never Total Score: 1 EUNICE-7 AMB Questionnaire EUNICE-7 Date EUNICE - 7 assessed: 07/13/23 Feeling nervous, anxious, or on edge: 0 = Not at all Not being able to stop or control worryin = Not at all Worrying too much about different things: 0 = Not at all Trouble relaxin = Not at all Being so restless that it is hard to sit still: 0 = Not at all Becoming easily annoyed or irritable: 0 = Not at all Feeling afraid as if something awful might happen: 0 = Not at all Total EUNICE-7 score (0-4 normal; 5-9 mild; 10-14 moderate; 15-21 severe): 0 Source: Developed by Drs. Emigdio Nash, Roxanne Carson, Curtis Pena and colleagues, with an educational renae from [employer]. Review of Systems Const All systems reviewed & are unremarkable except as noted in HPI and below Reports no additional complaints Eyes Reports no additional complaints ENT Reports no additional complaints Card Reports no additional complaints Resp Reports no additional complaints GI Reports no additional complaints Reports no additional complaints Physical exam (Primary Care) Vital Signs: Last Vital Signs Pulse 63 07/13/23 07:44 BP 126/80 07/13/23 07:44 Pulse Ox 100 07/13/23 07:44 Oxygen Delivery Method Room Air 07/13/23 07:44 BMI result Body Mass Index 23.2 Tobacco/Smoking Status: Tobacco use Status Tobacco use date assessed 07/13/23 07/13/23 07:46 Patient Tobacco Use Status Former Tobacco user 07/13/23 07:46 e-Cigarette/Vaping Use Never Used 07/13/23 07:46 Depression Screening Interpretation: Negative Const General: no acute distress HENMT Head: Yes normal to inspection Ears: hearing grossly normal bilaterally General nose exam: Normal external nose present Face and sinus: Yes normal facial exam Mouth: Normal oral and palatal mucosa present Throat: Yes posterior oropharynx normal Eyes General: appearance normal, both eyes and all related structures Neck Neck: Yes no lymphadenopathy and Yes supple Resp Effort & Inspection: normal respiratory effort Auscultation: clear to auscultation bilaterally Cardio Rhythm: regular rhythm Heart sounds: S1 normal heart sound present and S2 normal heart sound present GI Inspection: Yes normal to inspection Palpation (GI): Soft to palpation Percussion: Yes normal to percussion Auscultation: normal bowel sounds Assessment and Plan Assessment & Plan (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 Bailey Code(s): Z98.890 - Other specified postprocedural states (3) Annual physical exam: Code(s): Z00.00 - Encounter for general adult medical examination without abnormal findings Plan: A well balanced diet and regular physical activity discussed with the patient. she will have a fasting blood work today. Patient will return in 1 year for physical or as needed Orders: Orders Comprehensive [place]. Panel Fast Today Z00.00 - Encounter for general adult medical examination without abnormal findings Lipid Panel Today Z00.00 - Encounter for general adult medical examination without abnormal findings TSH reflex Free T4 Today Z00.00 - Encounter for general adult medical examination without abnormal findings Coding Level of Care Code New Pt Prev Care 40-64y([id number]) Diagnoses Axillary hyperhidrosis L74.510 Hx of colonoscopy Z98.890 Annual physical exam Z00.00
[2023-07-13 07:44] VITALS: BP 126/80; PULSE 63; O2SAT 100; BMI 23.2
== END 2023-07-13 08:28 | disposition home or self-care (01) ==
PROVIDERS: Visit Provider Internal Medicine
DX: L74.510 Primary focal hyperhidrosis, axilla (principal); Z98.890 Other specified postprocedural states; Z00.00 Encounter for general adult medical examination without abnormal findings
CPT/HCPCS: 99386

== ENCOUNTER 2023-07-13 08:15 | Outpatient (REF) | payer OTHER, SELFPAY ==
[2023-07-13 12:58] LABS: Alanine Aminotransferase 24 U/L (0-31); Albumin Level 4.5 g/dL (3.5-5.0); Alkaline Phosphatase 46 U/L (39-117); Anion Gap 11 (12-20); Aspartate Amino Transferase 25 U/L (5-31); Bilirubin Total 0.9 mg/dL (0.0-1.0); Blood Urea Nitrogen 16 mg/dL (9-16); Calcium 9.7 mg/dL (8.4-10.2); Carbon Dioxide 30 mmol/L (22-29); Chloride 108 mmol/L (96-108); Cholesterol 223 mg/dL (<200); Estimated Glomerular Filt Rate > 60; Glucose Fasting 87 mg/dL (60-99); HDL Cholesterol 84 mg/dL (>40); LDL Cholesterol Calculated 130 mg/dL (<100); Potassium 3.8 mmol/L (3.3-5.1); Sodium 145 mmol/L (135-145); TSH reflex Free T4 2.24 uIU/mL (0.32-4.0); Total Protein 7.5 g/dL (6.5-8.0); Triglycerides 46 mg/dL (<150)
== END 2023-07-13 08:16 | disposition home or self-care (01) ==
LOC: HO.HMGCLDS 08:15
PROVIDERS: PCP Internal Medicine; Visit Provider Internal Medicine
DX: Z00.00 Encounter for general adult medical examination without abnormal findings (principal)
CPT/HCPCS: 36415; 80053; 80061; 84443

== ENCOUNTER 2023-07-27 09:55 | Outpatient (REF) | payer OTHER, SELFPAY ==
[2023-07-27 14:28] LABS: Vitamin D 25-OH Total 42.3 ng/mL (>30)
[2023-07-27 14:30] LABS: Folate 14.8 ng/mL (> or = 4.0); Vitamin B12 995 pg/mL (200-900)
== END 2023-07-27 09:56 | disposition home or self-care (01) ==
LOC: HO.HMGCLDS 09:55
PROVIDERS: PCP Internal Medicine; Visit Provider Internal Medicine
DX: Z00.00 Encounter for general adult medical examination without abnormal findings (principal)
CPT/HCPCS: 36415; 82306; 82607; 82746

== ENCOUNTER 2023-08-16 10:07 | Outpatient (AMB) | payer OTHER, SELFPAY ==
[2023-08-16 10:22] VITALS: BP 122/74; PULSE 70; O2SAT 100; BMI 23.0
--- NOTE | 2023-08-16 10:22 | MHC.PC.OV ---
Vital Signs 08/16/23 10:22 Height 5 ft 4 in Weight 134 lb BMI 23.0 BP 122/74 Blood Pressure Location Lt brachial Position Sitting Pulse 70 Pulse Source Pulse Oximeter Pulse Oximetry (%) 100 Oxygen Delivery Method Room Air Intake Visit Reasons: Discuss kidney concerns Intake Note: Pt is here today for a follow up visit. Pt has some questions for the doctor to discuss. Allergies No Known Allergies [No Known Allergies*] Allergy (Verified 08/16/23 10:28) Tobacco use date assessed: 08/16/23 Dental Screening Dental Screen Date: 08/16/23 Did you have a dental visit in the last 12 months?: Yes Did you have a dental problem in the last 6 months where you did not have access to dental care?: No Was dental information given to patient?: Patient has dentist HPI Discuss kidney concerns HPI Details Patient presents for the follow-up. She is concerned about strong body odor and increased sweating. Patient follows up with personnel arbitrator and has been getting Botox injections every 3 months. Patient has been limiting her variety of food intake including garlic onions meat because of the odor. [facility] Medical History (Updated 08/16/23 @ 11:09 by Zeny Wick MD) Hypercholesteremia Hypertension Family History Father No problems noted. 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 How often do you have a drink containing alcohol?: Monthly or less 2. How many drinks containing alcohol do you have on a typical day when you are drinking?: 1 or 2 3. How often do you have six or more drinks on one occasion?: Never Total Score: 1 EUNICE-7 AMB Questionnaire EUNICE-7 Date EUNICE - 7 assessed: 07/13/23 Source: Developed by Drs. Emigdio Nash, Roxanne Carson, Curtis Pena and colleagues, with an educational renae from [employer]. Review of Systems Const All systems reviewed & are unremarkable except as noted in HPI and below Reports no additional complaints Eyes Reports no additional complaints ENT Reports no additional complaints Card Reports no additional complaints Resp Reports no additional complaints GI Reports no additional complaints Reports no additional complaints Physical exam (Primary Care) Vital Signs: Last Vital Signs Pulse 70 08/16/23 10:22 BP 122/74 08/16/23 10:22 Pulse Ox 100 08/16/23 10:22 Oxygen Delivery Method Room Air 08/16/23 10:22 BMI result Body Mass Index 23.0 Tobacco/Smoking Status: Tobacco use Status Tobacco use date assessed 08/16/23 08/16/23 10:32 Patient Tobacco Use Status Former Tobacco user 08/16/23 10:32 e-Cigarette/Vaping Use Never Used 08/16/23 10:22 Thrive Assessment: Date of Thrive Assessment Date Thrive assessed 07/13/23 08/16/23 10:22 Const General: no acute distress HENMT Face and sinus: Yes normal facial exam Eyes General: appearance normal, both eyes and all related structures Neck Neck: Yes no lymphadenopathy and Yes supple Resp Effort & Inspection: normal respiratory effort Auscultation: clear to auscultation bilaterally Cardio Rhythm: regular rhythm Heart sounds: S1 normal heart sound present and S2 normal heart sound present GI Palpation (GI): Soft to palpation Percussion: Yes normal to percussion Auscultation: normal bowel sounds Assessment and Plan Assessment & Plan (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 Patient will be referred to a counseling to address obsessive thinking and behavior (2) Obsessive behavior: Code(s): R46.81 - Obsessive-compulsive behavior Orders: Referrals Counseling Referral R46.81 - Obsessive-compulsive behavior Coding Level of Care Code Est Pt Level 3 (90276) Diagnoses Axillary hyperhidrosis L74.510 Obsessive behavior R46.81
== END 2023-08-16 11:10 | disposition home or self-care (01) ==
PROVIDERS: PCP Internal Medicine; Visit Provider Internal Medicine
DX: L74.510 Primary focal hyperhidrosis, axilla (principal); R46.81 Obsessive-compulsive behavior
CPT/HCPCS: 99213

== ENCOUNTER 2023-11-25 12:41 | Outpatient (AMB) | payer OTHER, SELFPAY ==
--- NOTE | 2023-11-25 13:00 | A.OFFPC_ITS ---
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 Allergies No Known Allergies [No Known Allergies*] Allergy (Verified 11/25/23 13:04) Medication List - Last Reconciled 11/25/23 by Zeny Wick MD ascorbic acid (vitamin C) 1,000 mg PO DAILY bergamot extract PO plecanatide (Trulance) 3 mg PO DAILY [probiotics PO] [pure magnesium PO] rhubarb root extract (Estrovera) mg PO [vitamin b compelx PO] [vitamin K2 with D3 PO] Tobacco use date assessed: 11/25/23 Dental Screening Dental Screen Date: 11/25/23 Did you have a dental visit in the last 12 months?: Yes Did you have a dental problem in the last 6 months where you did not have access to dental care?: No Was dental information given to patient?: Patient has dentist HPI Discuss Dermatology Referral HPI Details Pt presents complaining of anxiety and insomnia getting worse. She has been seeing section plotter operator for hyperhidrosis and tried multiple treatments withouy significant improvement. Patient is researching specialist and [facility] and would like to be referred for 2nd opinion. [facility] Medical History (Updated 11/25/23 @ 14:06 by Zeny Wick MD) Hypercholesteremia Hypertension Family History Father No problems noted. 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 1. Little interest or pleasure in doing things: not at all 2. Feeling down, depressed, or hopeless: not at all 3. Trouble falling or staying asleep, or sleeping too much: not at all 4. Feeling tired or having little energy: not at all 5. Poor appetite or overeating: not at all 6. Feeling bad about yourself - or that you are a failure or have let yourself or your family down: not at all 7. Trouble concentrating on things, such as reading the newspaper or watching television: not at all 8. Moving or speaking so slowly that other people could have noticed. Or the opposite - being so fidgety or restless that you have been moving around a lot more than usual: not at all 9. Thoughts that you would be better off or of hurting yourself in some way: not at all Total score: 0 Depression Screening Interpretation: Negative Depression Screening Done: Yes Source: Developed by Drs. Emigdio Nash, Roxanne Carson, Curtis Pena and colleagues, with an educational renae from [employer]. Thrive Questionnaire Date Thrive assessed: 07/13/23 I am a: Patient What is your living situation today?: I have a steady place to live Within the past 12 months, did the food you bought not last and you didn't have the money to get more?: Never true Within the past 12 months, did you worry whether your food would run out before you got money to buy more?: Never true THRIVE Score: 0 AUDIT C Alcohol Use Questionnaire (AUDIT-C) 1. How often do you have a drink containing alcohol?: Never 3. How often do you have six or more drinks on one occasion?: Never Total Score: 0 EUNICE-7 AMB Questionnaire EUNICE-7 Date EUNICE - 7 assessed: 07/13/23 Feeling nervous, anxious, or on edge: 1 = Several days Not being able to stop or control worryin = Several days Worrying too much about different things: 1 = Several days Trouble relaxin = Several days Being so restless that it is hard to sit still: 0 = Not at all Becoming easily annoyed or irritable: 0 = Not at all Feeling afraid as if something awful might happen: 0 = Not at all Total EUNICE-7 score (0-4 normal; 5-9 mild; 10-14 moderate; 15-21 severe): 4 Source: Developed by Drs. Emigdio LRoxanne Worthington Kurt Kroenke and colleagues, with an educational renae from [employer]. Review of Systems Const All systems reviewed & are unremarkable except as noted in HPI and below Reports no additional complaints Eyes Reports no additional complaints ENT Reports no additional complaints Card Reports no additional complaints Resp Reports no additional complaints GI Reports no additional complaints Reports no additional complaints Physical exam (Primary Care) Vital Signs: Last Vital Signs Pulse 71 11/25/23 13:01 BP 114/80 11/25/23 13:01 Pulse Ox 99 11/25/23 13:01 Oxygen Delivery Method Room Air 11/25/23 13:01 BMI result Body Mass Index 23.0 Tobacco/Smoking Status: Tobacco use Status Tobacco use date assessed 11/25/23 11/25/23 13:08 Patient Tobacco Use Status Former Tobacco user 11/25/23 13:01 e-Cigarette/Vaping Use Never Used 11/25/23 13:01 PHQ-9: PHQ-9 Score PHQ-9: Total score 0 11/25/23 13:10 Depression Screening Interpretation: Negative Thrive Assessment: Date of Thrive Assessment Date Thrive assessed 07/13/23 11/25/23 13:01 Const General: no acute distress HENMT Head: Yes normal to inspection Ears: hearing grossly normal bilaterally Face and sinus: Yes normal facial exam Resp Effort & Inspection: normal respiratory effort Auscultation: clear to auscultation bilaterally Cardio Rhythm: regular rhythm Heart sounds: S1 normal heart sound present and S2 normal heart sound present Assessment and Plan Assessment & Plan (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 Patient will be searching 2nd opinion referral (2) Anxiety: Code(s): F41.9 - Anxiety disorder, unspecified Plan: Start 25 mg of sertraline for 1st week then increase to 50 mg. Stress management well-balanced diet regular exercise discussed with the patient follow-up in 2 months Medications: New sertraline 1/2 tabl qd for 1 week, then 1 qd 50 mg PO DAILY 30 tabs 1RF Coding Level of Care Code Est Pt Level 3 (75028) Diagnoses Axillary hyperhidrosis L74.510 Anxiety F41.9
[2023-11-25 13:01] VITALS: BP 114/80; PULSE 71; O2SAT 99; BMI 23.0
== END 2023-11-25 13:40 | disposition home or self-care (01) ==
PROVIDERS: PCP Internal Medicine; Visit Provider Internal Medicine
DX: L74.510 Primary focal hyperhidrosis, axilla (principal); F41.9 Anxiety disorder, unspecified
CPT/HCPCS: 99213

== ENCOUNTER 2024-02-16 08:12 | Outpatient (REF) | payer OTHER, SELFPAY | END 2024-02-16 08:13 | disposition home or self-care (01) | LOC: HO.MAMMO 08:12 | PROVIDERS: PCP Internal Medicine; Visit Provider Internal Medicine | DX: Z12.31 Encounter for screening mammogram for malignant neoplasm of breast (principal) | CPT/HCPCS: 77063; 77067 ==

== ENCOUNTER → 2024-02-16 08:15 | Outpatient (BNV) | payer OTHER, SELFPAY | PROVIDERS: PCP Internal Medicine; Visit Provider Radiology Diagnostic Radiology | DX: Z12.31 Encounter for screening mammogram for malignant neoplasm of breast (principal) | CPT/HCPCS: 77063; 77067 ==

== ENCOUNTER 2024-07-11 06:37 | Outpatient (REF) | payer OTHER, SELFPAY ==
[2024-07-11 07:23] LABS: Hematocrit 39.3 % (37.0-47.0); Hemoglobin 12.8 g/dl (12.0-16.0); Mean Corpuscular HGB Conc 32.6 g/dl (31.0-35.0); Mean Corpuscular Volume 89.1 fL (80.0-98.0); Platelet Count 138 X10*3/uL (160-400); Red Blood Count 4.41 X10*6/uL (4.20-5.50); Red Cell Distribution Width 13.3 % (11.0-16.0); WBC ABN SCTR FOR CBC 1
[2024-07-11 07:24] LABS: White Blood Count 6.6 X10*3/uL (4.8-10.8)
[2024-07-11 07:36] LABS: Estimated Average Glucose 114 mg/dL; Hemoglobin A1c % 5.6 % (<6.0)
[2024-07-11 07:48] LABS: Alanine Aminotransferase 16 U/L (0-31); Albumin Level 4.1 g/dL (3.5-5.0); Alkaline Phosphatase 50 U/L (39-117); Anion Gap 12 (12-20); Aspartate Amino Transferase 21 U/L (5-31); Bilirubin Total 0.3 mg/dL (0.0-1.0); Blood Urea Nitrogen 17 mg/dL (9-16); Carbon Dioxide 29 mmol/L (22-29); Chloride 107 mmol/L (96-108); Cholesterol 225 mg/dL (<200); Estimated Glomerular Filt Rate > 60; Glucose Fasting 102 mg/dL (60-99); HDL Cholesterol 81 mg/dL (>40); LDL Cholesterol Calculated 129 mg/dL (<100); Potassium 3.8 mmol/L (3.3-5.1); Sodium 144 mmol/L (135-145); Total Protein 7.2 g/dL (6.5-8.0); Triglycerides 75 mg/dL (<150)
[2024-07-11 07:58] LABS: Vitamin D 25-OH Total 31.9 ng/mL (>30)
[2024-07-11 08:12] LABS: Folate 7.9 ng/mL (> or = 4.0); Vitamin B12 518 pg/mL (200-900)
[2024-07-11 08:15] LABS: Atypical Lymph Absolute Manual 0.3 x10*3/uL; Atypical Lymphs Percent Manual 4 % (0-6); Band Neutrophils Percent 0 % (3-5); Eosinophils Absolute Manual 0.1 X10*3/uL (0.0-0.4); Eosinophils Percent Manual 1 % (0-4); Lymphocytes Percent Manual 60 % (20-40); Monocytes Absolute Manual 0.3 X10*3/uL (0.1-1.2); Monocytes Percent Manual 4 % (2-11); Neutrophils Percent Manual 31 % (45-73)
[2024-07-11 08:17] LABS: Burr Cells 3+ (>5) /OIF; Platelet Estimate SLIGHTLY DECREASED (NORMAL); Platelet Morphology Comment NORMAL; RBC Morphology NOTED; Schistocytes 1+ (0-2) /OIF
[2024-07-15 14:13] LABS: Testosterone, Free 2.6 pg/mL (0.1-6.4); Testosterone, Total 24 ng/dL (2-45)
[2024-07-16 08:54] LABS: Metanephrine, Free 36 pg/mL (<=57); Normetanephrines, Free 89 pg/mL (<=148); Total Metanephrine, Free 125 pg/mL (<=205)
[2024-07-18 16:58] LABS: Cortisol, Free 1.38 mcg/dL
[2024-07-20 15:32] LABS: IGF-1 (Somatomedin C) 117 ng/mL (50-317); IGF-1 Z Score (Female) -0.3 SD (-2.0 - +2.0)
== END 2024-07-11 06:38 | disposition home or self-care (01) ==
LOC: HO.HMGCLDS 06:37
PROVIDERS: PCP Internal Medicine; Visit Provider Internal Medicine
DX: Z00.00 Encounter for general adult medical examination without abnormal findings (principal); L65.9 Nonscarring hair loss, unspecified; R63.4 Abnormal weight loss; L74.510 Primary focal hyperhidrosis, axilla; Z13.1 Encounter for screening for diabetes mellitus
CPT/HCPCS: 36415; 80053; 80061; 82306; 82530; 82607; 82746; 83036; 83835; 84305; 84402; 84403; 84443; 85007; 85027

== ENCOUNTER 2024-08-03 11:45 | Outpatient (AMB) | payer OTHER, SELFPAY ==
--- NOTE | 2024-08-03 11:48 | MHC.PC.OV ---
Vital Signs 08/03/24 11:50 Height 5 ft 4 in Weight 140 lb BMI 24.0 BP 128/78 Blood Pressure Location Rt brachial Position Sitting Pulse 79 Pulse Source Pulse Oximeter Pulse Oximetry (%) 99 Oxygen Delivery Method Room Air Intake Visit Reasons: PE Intake Note: Pt is here today for PE. Allergies No Known Allergies [No Known Allergies*] Allergy (Verified 08/03/24 11:52) Medication List - Last Reconciled 08/03/24 by Zeny Wick MD ascorbic acid (vitamin C) 1,000 mg PO DAILY bergamot extract PO plecanatide (Trulance) 3 mg PO DAILY [probiotics PO] [pure magnesium PO] rhubarb root extract (Estrovera) mg PO [vitamin b compelx PO] [vitamin K2 with D3 PO] Tobacco use date assessed: 08/03/24 Dental Screening Dental Screen Date: 08/03/24 Did you have a dental visit in the last 12 months?: Yes Did you have a dental problem in the last 6 months where you did not have access to dental care?: No Was dental information given to patient?: Patient has dentist HPI PE HPI Details [facility] History Hypercholesteremia Hypertension Surgical History Hx of appendectomy Hx of section Family History Father No problems noted. 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 Housing: House Patient Tobacco Use Status: Former Tobacco user e-Cigarette/Vaping Use: Never Used service: No Current occupational status: employed Cognitive needs: No Hearing needs: No Vision needs: No Questionnaire Thrive Questionnaire Date Thrive assessed: 05/29/24 I am a: Patient What is your living situation today?: I have a steady place to live Within the past 12 months, did the food you bought not last and you didn't have the money to get more?: I choose not to answer this question Within the past 12 months, did you worry whether your food would run out before you got money to buy more?: Never true Do you have trouble paying for medicines?: No Do you have trouble getting transportation to medical appointments?: No Do you have trouble paying your heating and electricity bill?: No Do you have trouble taking care of your child, family member or friend?: No Do you have trouble with day-to-day activities such as bathing, preparing meals, shopping, managing finances, etc.?: No Are you currently unemployed and looking for a job?: No Are you interested in more education?: No Please select the resources that you would like help with: None Currently or been in a relationship where the following occur: No concerns reported THRIVE Score: 0 AUDIT C Alcohol Use Questionnaire (AUDIT-C) 1. How often do you have a drink containing alcohol?: Never 3. How often do you have six or more drinks on one occasion?: Never Total Score: 0 EUNICE-7 AMB Questionnaire EUNICE-7 Date EUNICE - 7 assessed: 07/13/23 Source: Developed by Drs. Emgidio Nash, Roxanne Carson, Curtis Pena and colleagues, with an educational renae from [employer]. Review of Systems Const All systems reviewed & are unremarkable except as noted in HPI and below Eyes Reports no additional complaints ENT Reports no additional complaints Card Reports no additional complaints Resp Reports no additional complaints GI Reports no additional complaints Reports no additional complaints Musc Reports no additional complaints Physical exam (Primary Care) Vital Signs: Last Vital Signs Pulse 79 08/03/24 11:50 BP 128/78 08/03/24 11:50 Pulse Ox 99 08/03/24 11:50 Oxygen Delivery Method Room Air 08/03/24 11:50 BMI result Body Mass Index 24.0 Tobacco/Smoking Status: Tobacco use Status Tobacco use date assessed 08/03/24 08/03/24 11:56 Patient Tobacco Use Status Former Tobacco user 08/03/24 11:56 e-Cigarette/Vaping Use Never Used 08/03/24 11:48 Thrive Assessment: Date of Thrive Assessment Date Thrive assessed 05/29/24 08/03/24 11:48 Currently or been in a relationship where the following occur: No concerns reported Const General: no acute distress HENMT Head: Yes normal to inspection Ears: hearing grossly normal bilaterally Face and sinus: Yes normal facial exam Mouth: Normal oral and palatal mucosa present Throat: Yes posterior oropharynx normal Eyes General: appearance normal, both eyes and all related structures Neck Neck: Yes no lymphadenopathy and Yes supple Resp Effort & Inspection: normal respiratory effort Auscultation: clear to auscultation bilaterally Cardio Rhythm: regular rhythm Heart sounds: S1 normal heart sound present and S2 normal heart sound present GI Inspection: Yes normal to inspection Palpation (GI): Soft to palpation Percussion: Yes normal to percussion Auscultation: normal bowel sounds Assessment and Plan Assessment & Plan (1) Annual physical exam: Code(s): Z00.00 - Encounter for general adult medical examination without abnormal findings Plan: Well-balanced diet regular physical activity discussed with the patient. She is up-to-date with mammogram and will schedule an appointment with a new senior teller (2) Hx of colonoscopy: Comment: normal 2022 Dr. Bailey Code(s): Z98.890 - Other specified postprocedural states (3) Normal pelvic exam: Comment: 12/2022 Priscilla senior teller Code(s): Z01.419 - Encounter for gynecological examination (general) (routine) without abnormal findings (4) Elevated cortisol level: Comment: borderline, check saliva bedtime cortisol level 07/2024 Code(s): R79.89 - Other specified abnormal findings of blood chemistry Medications: New aluminum chloride 20% (Drysol) 1 appl topical QWEEK PRN 37.5 mL 4RF hyperhidrosis Coding Level of Care Code Est Pt Prev Care 40-64y(10012) Diagnoses Annual physical exam Z00.00 Hx of colonoscopy Z98.890 Normal pelvic exam Z01.419 Elevated cortisol level R79.89
[2024-08-03 11:50] VITALS: BP 128/78; PULSE 79; O2SAT 99; BMI 24.0
== END 2024-08-03 12:45 | disposition home or self-care (01) ==
PROVIDERS: PCP Internal Medicine; Visit Provider Internal Medicine
DX: Z00.00 Encounter for general adult medical examination without abnormal findings (principal); Z98.890 Other specified postprocedural states; Z01.419 Encounter for gynecological examination (general) (routine) without abnormal findings; R79.89 Other specified abnormal findings of blood chemistry

== ENCOUNTER → 2024-08-03 11:45 | Outpatient (BNVA) | payer OTHER, SELFPAY | PROVIDERS: PCP Internal Medicine; Visit Provider Internal Medicine ==

== ENCOUNTER 2024-08-06 07:32 | Outpatient (REF) | payer OTHER, SELFPAY ==
[2024-08-12 22:09] LABS: Saliva Cortisol 0.05 mcg/dL
== END 2024-08-06 07:33 | disposition home or self-care (01) ==
LOC: HO.LNP 07:32
PROVIDERS: Visit Provider Internal Medicine
DX: R79.89 Other specified abnormal findings of blood chemistry (principal)
CPT/HCPCS: 82530

== ENCOUNTER 2025-02-21 08:33 | Outpatient (REF) | payer OTHER, SELFPAY ==
--- OUTSIDE RECORDS SUMMARY | 2025-02-21 09:00 | XMS_ITS | Clinical Summary ---
Author Organization [facility] Facility Address [address] [address] Care Team Providers Care Healthcare Customer Service Name Role Phone Jorge L Mazariegos MD Primary Care Provider [phone] Social History Tobacco Use Types Packs/Day Years Used Date Smoking Tobacco: Never Assessed Comments Unknown Sex and Gender Information Value Date Recorded Sex Assigned at Not on file Legal Sex Female 8:43 AM EST Gender Identity Not on file Sexual Orientation Not on file Plan of Treatment Health Maintenance Due Date Last Done Comments Breast Cancer Screening 1970 Hepatitis B Vaccine (1 of 3 - 19+ 3-dose series) 06/26 Colorectal Cancer Screening: Annual FOBT 2017 Colorectal Cancer Screening: Colonoscopy 2017 Colorectal Cancer Screening: Sigmoidoscopy 2017 Pneumococcal Vaccine: 50+ Years (1 of 1 - PCV) 018 Influenza Vaccine (Season Ended) 2025 Insurance [address] [place] [facility] [address] [place] [address] [facility] Care Teams Healthcare Customer Service Relationship Specialty Start Date End Date Jorge L Mazariegos MD [address] [facility] [address] [place], [place] PCP - General Internal Medicine 12/22/21
--- OUTSIDE RECORDS SUMMARY | 2025-02-21 09:00 | XMS_ITS | Clinical Summary ---
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 06/13/20 23 Active losartan (COZAAR) 100 mg tablet Take 1 tablet (100 mg total) by mouth 1 (one) time each day. 11/16/19 23 Active linaCLOtide (LINZESS) 290 mcg capsule Take by mouth. Active prucalopride (Motegrity) 2 mg tabletIndications :Other constipation Take 2 mg by mouth 1 (one) time each day. 30 tablet 3 11/08/19 25 Active metroNIDAZOLE (FLAGYL) 500 mg tabletIndications :H. pylori infection Take 1 tablet (500 mg total) by mouth 3 (three) times a day for 14 days. Do not use mouth wash or consume alcohol until 48 hours after last dose 42 each 02/14/20 25 025 Active omeprazole (PriLOSEC) [address] capsuleIndication s:H. pylori infection Take 1 capsule (20 mg total) by mouth 2 (two) times a day for 14 days. Do not crush or chew. 28 each 02/14/20 25 025 Active bismuth subsalicylate (PEPTO BISMOL) 262 mg chewable tabletIndications :H. pylori infection Chew 1 tablet (262 mg total) 4 (four) times a day (before meals and nightly) for 14 days. 56 tablet 02/14/20 25 025 Active tetracycline (ACHROMYCIN,SUMYC IN) 500 mg capsuleIndication s:H. pylori infection Take 1 capsule (500 mg total) by mouth 4 (four) times a day for 14 days. 56 capsule 02/14/20 25 025 Active omeprazole (PriLOSEC) [address] capsuleIndication s:GERD (gastroesophageal reflux disease) TAKE 1 CAPSULE BY MOUTH EVERYDAY AT BEDTIME 90 capsule 3 10/29/20 24 025 Discontinued doxycycline (DORYX) 100 mg EC tabletIndications :H. pylori infection Take 1 tablet (100 mg total) by mouth 2 (two) times a day for 14 days. Do not crush or chew. Take with a full glass of water and do not lie down for at least 30 minutes after. 28 tablet 02/14/20 25 025 Discontinued Active Problems Problem Noted Date Diagnosed Date Alopecia 09/17/2024 Essential (primary) hypertension 09/17/2024 Overview (09/17/2024): Last Assessment & Plan: BP elevated 149/82 today. Patient did take Cozaar this morning. Instructed to f/u with PCP. Mixed hyperlipidemia 09/17/2024 Vaginal yeast infection 05/19/2023 Overview (09/17/2024): Last Assessment & Plan: Wet prep positive for yeast, negative for BV or trich. No foul odor noted on exam today. Rx diflucan provided to the patient. If symptoms persist following treatment she may return for further evaluation. Menopausal syndrome (hot flashes) 09/14/2022 Overview (09/17/2024): Last Assessment & Plan: Patient happy with Paxil, symptoms improved. Will continue. Refills ordered. Hepatitis C antibody positive in blood Overview (09/17/2024): HCV viral load neg Anhydrosis 03/01/2022 Constipation 03/01/2022 Assessment & Plan (12/21/2024 11:00 AM EST): Start Motegrity when available Continue Miralax Usre Mg Citrate PRN Assessment & Plan (11/08/2024 9:37 AM EST): Orders: prucalopride (Motegrity) 2 mg tablet; Take 2 mg by mouth 1 (one) time each day. polyethylene glycol (GoLYTELY) 236-22.74-6.74 -5.86 gram solution; Take 4,000 mL by mouth 1 (one) time for 1 dose. Assessment & Plan (10/09/2024 11:42 AM EST): Orders: XR Abdomen 1 View; Future Comprehensive metabolic panel; Future CBC and differential; Future Lipase; Future Postmenopausal bleeding 03/24/2021 Overview (09/17/2024): Last Assessment & Plan: I discussed the common causes of postmenopausal bleeding including trauma, atrophy, and endometrial polyps, as well as less common but more concerning causes including endometrial hyperplasia and endometrial carcinoma. Recommend pelvic ultrasound, which was ordered today. Discussed recommendation for endometrial sampling, as well, particulary if the endometrial stripe measures >4mm on ultrasound. I reviewed with the patient that it is reasonable to continue with expectant management if the endometrial stripe is <4mm, however if she experiences another episode of PMB endometrial sampling would be indicated at that time. Patient would like biopsy done regardless of ultrasound result. Discussed EMB process and recommendation for taking an OTC NSAID prior to the visit to help with cramping/discomfort of the procedure. Will schedule to return for EMB. All questions answered. Encounters Date Type Department Care Team Description 02/13/2025 Telephone Gastroenterology - 299 [facility] 299 [facility] [address] [place] [address] Opal Snyder MA 02/11/2025 11:08 AM EDT Anesthesia Event [facility] [address] [place] [address] Corie Farias MD 02/11/2025 10:29 AM EDT - 02/11/2025 11:59 PM EDT Hospital Encounter [facility] [address] [place] [address] Zeny Bailey MD Freeman, Katharine O, MD Vermes, Rachie, CRNA Gastroesophageal reflux disease, unspecified whether esophagitis present; Esophageal obstruction Discharge Disposition: Home or Self Care 12/21/2024 9:20 AM EST Office Visit Gastroenterology - 299 [facility] 299 [facility] [address] [place] [phone] Marta Ybarra NP Slow transit constipation (Primary Dx); Gastroesophageal reflux disease, unspecified whether esophagitis present; Cough with congestion of paranasal sinus 12/05/2024 Telephone Gastroenterology - 299 [facility] [address] [address] Zeny Bailey MD from Last 3 Months Immunizations Name Administration Dates Next Due Influenza trivalent, with pr eservative (Fluzone; Afluria) 6mo and older 08/24/2021 Surgical History Surgery Date Site/Laterality Comments SECTION PROCEDURE: HISTORICAL DELIVERY APPENDECTOMY PROCEDURE: HISTORICAL APPENDECTOMY COLONOSCOPY 08/04/2022 PROCEDURE: HISTORICAL COLONOSCOPY; COMMENT: negative Medical History Medical History Date Comments Essential (primary) hypertension DX:Essential (primary) hypertension Mixed hyperlipidemia DX:Mixed hy perlipidemia Alopecia DX:Alopecia Hyponatremia 03/22/2022 DX:Hyponatremia; COMMENT: 12/19/2021 Adm to [facility] overnight after c/o N, V, dizziness, weakness in ED. Pt flushed her system drinking 12 eight oz bottles of water withing 1 to 1 1/2 hours. Constipation 03/01/2022 DX:Constipation Postmenopausal bleeding 03/24/2021 DX:Postm enopausal bleeding Anhydrosis 03/01/2022 DX:Anhydrosis Family History Medical History Relation Name Comments Prostate cancer Father Stomach cancer Father Stomach cancer Mother Cervical cancer Sister Breast cancer Neg Hx Cancer of Small Bowel Neg Hx Colon cancer Neg Hx Kidney cancer Neg Hx Ovarian cancer Neg Hx Pancreatic cancer Neg Hx Uterine cancer Neg Hx Relation Name Status Comments Father Mother Sister Social History Tobacco Use Types Packs/Day Years Used Date Smoking Tobacco: Former Smokeless Tobacco: Never Alcohol Use Standard Drinks/Week Comments Not Currently 0 (1 standard drink = 0.6 oz pur e alcohol) Interpersonal Safety Answer Date Record ed Physical Abuse 02/11/2025 Verbal Abuse 02/11/2025 Comments No Sex and Gender Information Value Date Recorded Sex Assigned at Female 02/11/2025 10:25 AM EDT Legal Sex Female 8:57 AM EST Gender Identity Female 02/11/2025 10:25 AM EDT Sexual Orientation Straight 02/11/2025 10 :25 AM EDT Obstetrics History Last Filed Vital Signs Vital Sign Reading Time Taken Comments Blood Pressure 117/79 02/11/2025 11:38 AM EDT Pulse 76 02/11/2025 11:38 AM EDT Temperature 36.1 ??C (97 ??F) 02/11/2025 10:44 AM EDT Respiratory Rate 17 02/11/2025 11:38 AM EDT Oxygen Saturation 98% 02/11/2025 11:38 AM EDT Inhaled Oxygen Concentration - - Weight 70.3 kg (155 lb) 02/11/2025 10:44 AM EDT Height 165.1 cm (5' 5 ) 02/11/2025 10:44 AM EDT Body Mass Index 25.79 02/11/2025 10:44 AM EDT Plan of Treatment Upcoming Encounters Date Type Department Care Team (Late st Contact Info) Description 03/27/2025 9:40 AM EDT Office Visit Gastroenterology - [address] [place] [address] [phone] Marta Ybarra NP [address] [address] 04/19/2025 9:20 AM EDT Office Visit Gastroenterology - [address] [place] [address] [phone] Marta Ybarra NP [address] [address] Health Maintenance Due Date Last Done Comments Breast Cancer Screening 1970 DTaP,Tdap,and Td Vaccines (1 - Tdap) 1987 Hepatitis B Vaccines (1 of 3 - 19+ 3-dose series) 1987 Pneumococcal Vaccine: 50+ Years (1 of 1 - PCV) 2018 Zoster Vaccines (1 of 2) 2018 Depression Screening 10/16/2022 Osteoporosis Screening (Bone Density Screening) 10/16/2022 Social Influencers of Health Screening 10/16/2022 COVID-19 Vaccine (4 - 2023-2 5 season) 2024 10/22/2021, 03/31/2021, 03/10/2021 Influenza Vaccine (Season Ended) 2025 08/24/2021, 08/03/2020 Hypertension/CHF/CAD Annual BMP Blood Test 10/09/2025 10/09/2024, 06/07/2022 Cervical Cancer Screening: HPV 02/20/2026 02/20/2021 Cholesterol Screening (Lipid Panel) 03/02/2027 03/02/2022 Colorectal Cancer Screening: Colonoscopy 08/06/2032 07/15/2022, 12/21/2018 MMR Vaccines Aged Out 08/07/2020 No longer eligi ble based on patient's age to complete this topic HIV Screening Completed 03/02/2022 Hepatitis C Screening Completed 06/07/2022 HIB Vaccines Aged Out No longer eligi ble based on patient's age to complete this topic HPV Vaccines Aged Out No longer eligi ble based on patient's age to complete this topic Hepatitis A Vaccines Aged Out No long er eligible based on patient's age to complete this topic IPV Vaccines Aged Out No longer eligi ble based on patient's age to complete this topic Meningococcal ACWY Vaccine Aged Out N o longer eligible based on patient's age to complete this topic Meningococcal B Vaccine Aged Out No l onger eligible based on patient's age to complete this topic Pneumococcal Vaccine: Pediatrics (0 to 5 Years) and At-Risk Patients (6 to 64 Years) Aged Out No longer eligible b ased on patient's age to complete this topic RSV Immunization Patients Under 20 months Aged Out No longer eligible b ased on patient's age to complete this topic Varicella Vaccines Aged Out No longer eligible based on patient's age to complete this topic Procedures Procedure Name Priority Date/Time Associated Diagnosis Comments EGD Routine 02/11/2025 11:17 AM EDT Gastroesophageal reflux disease, unspecified whether esophagitis present Esophageal obstruction TISSUE EXAM Routine 02/11/2025 11:14 AM EDT Gastroesophageal reflux disease, unspecified whether esophagitis present Esophageal obstruction COMPREHENSIVE METABOLIC PANEL Routine 10/09/2024 12:20 PM EST Right upper quadrant abdominal pain Other constipation COLONOSCOPY Routine 07/15/2022 HEPATITIS C SCREENING Routine 06/07/2022 HIV SCREENING Routine 03/02/2022 LIPID PANEL Routine 03/02/2022 HPV Routine 02/20/2021 from Last 3 Months or Most Recently Relevant to Health Maintenance Results * EGD Anesthesia - MAC; SP ENDOSCOPY (02/11/2025 11:17 AM EDT) Anatomical Region Laterality Modality Other 02/11/2025 10:3 2 AM EDT Impressions 02/11/2025 11:18 AM EDT - Normal esophagus. Biopsied. ? - Normal stomach. Biopsied. ? - Normal examined duodenum. Recommendation: ?- Await pathology results. ? - Continue present medications. Narrative 02/11/2025 11:18 AM EDT [facility] GI Patient Name: Calista Cloud Procedure Date: 02/11/2025 10:32 AM Date of : 1970 Age: 54 Gender: Female Note Status: Finalized Attending MD: Zeny Bailey MD, Procedure Date No Time: 02/11/2025 Procedure: ? Upper GI endoscopy Indications: ? Follow-up of gastro-esophageal reflux disease, Globus ? sensation Providers: ? Zeny Bailey MD Referring MD: ?Zeny Wick MD Medicines: ? Propofol per Anesthesia Complications: ? No immediate complications. Estimated Blood Loss: ? Estimated blood loss: none. Procedure: ? Pre-Anesthesia Assessment: ? - ASA Grade Assessment: III - A patient with severe ? systemic disease. ? After obtaining informed consent, the endoscope was ? passed under direct vision. Throughout the procedure, ? the patient's blood pressure, pulse, and oxygen ? saturations were monitored continuously.The Endoscope ? was introduced through the mouth, and advanced to the ? second part of duodenum. The upper GI endoscopy was ? accomplished without difficulty. The patient tolerated ? the procedure well. Findings: ?The examined esophagus was normal. Biopsies were taken ? with a cold forceps for histology. ? The entire examined stomach was normal. Biopsies were ? taken with a cold forceps for histology. ? The cardia and gastric fundus were normal on ? retroflexion. ? The examined duodenum was normal. Procedure Code(s): ? --- Professional --- ? 07964, Esophagogastroduodenoscopy, flexible, ? transoral; with biopsy, single or multiple Diagnosis Code(s): ? --- Professional --- ? K21.9, Gastro-esophageal reflux disease without ? esophagitis CPT copyright 2020 [employer]. All rights reserved. The codes documented in this report are preliminary and upon interactive media specialist review may be revised to meet current compliance requirements. Zeny Bailey MD 02/11/2025 11:18:46 AM This report has been signed electronically.Zeny Bailey MD Number of Addenda: 0 Note Initiated On: 02/11/2025 10:32 AM Scope In: Scope Out: ? Endoscopy Department at [facility] - [address] [place] [address], ? [place] [address] Procedure Note Zeny Bailey MD - 02/11/2025 [facility] GI Patient Name: Calista Cloud Procedure Date: 02/11/2025 10:32 AM Date of : 1970 Age: 54 Gender: Female Note Status: Finalized Attending MD: Zeny Bailey MD, Procedure Date No Time: 02/11/2025 Procedure: Upper GI endoscopy Indications: Follow-up of gastro-esophageal reflux disease,Globus sensation Providers: Zeny Bailey MD Referring MD: Zeny Wick MD Medicines: Propofol per Anesthesia Complications: No immediate complications. Estimated Blood Loss: Estimated blood loss: none. Procedure: Pre-Anesthesia Assessment: - ASA Grade Assessment: III - A patient with severe systemic disease. After obtaining informed consent, the endoscope was passed under direct vision. Throughout theprocedure, the patient's blood pressure, pulse, and oxygen saturations were monitored continuously.TheEndoscope was introduced through the mouth, and advanced tothe second part of duodenum. The upper GI endoscopy was accomplished without difficulty. The patienttolerated the procedure well. Findings: The examined esophagus was normal. Biopsies weretaken with a cold forceps for histology. The entire examined stomach was normal. Biopsieswere taken with a cold forceps for histology. The cardia and gastric fundus were normal on retroflexion. The examined duodenum was normal. Procedure Code(s): --- Professional --- 93759, Esophagogastroduodenoscopy, flexible, transoral; with biopsy, single or multiple Diagnosis Code(s): --- Professional --- K21.9, Gastro-esophageal reflux disease without esophagitis CPT copyright 2020 [employer]. All rights reserved. The codes documented in this report are preliminary and upon interactive media specialist reviewmay be revised to meet current compliance requirements. Zeny Bailey MD 02/11/2025 11:18:46 AM This report has been signed electronically.Zeny Bailey MD Number of Addenda: 0 Note Initiated On: 02/11/2025 10:32 AM Scope In: Scope Out: Endoscopy Department at [facility] - [address] [place] [phone] IMPRESSION: - Normal esophagus. Biopsied. - Normal stomach. Biopsied. - Normal examined duodenum. Recommendation: - Await pathology results. - Continue present medications. us Zeny Bailey MD GI~PROCEDURE ORDERABLES Final Result * Tissue exam (02/11/2025 11:14 AM EDT) Final Diagnosis A. Stomach, body, biopsy: - Chronic, focally active gastritis with scattered bacteria morphologically compatible with Helicobacter pylori identified on hematoxylin and eosin stained sections. B. Esophagus, biopsy: - Esophageal squamous mucosa without diagnostic histopathologic change. 02/12/2025 4:57 PM EDT [facility] Gross Description A. Gastric, Body, biopsies: Labeled biopsies gastric bod . Received in formalin are three soft, hernandez-pink to red tissue fragments ranging from 0.25 cm to 0.45 cm in greatest diameter, which are wrapped in paper and submitted in toto in one cassette, three pieces, multiple levels. B. Esophagus, biopsies: Labeled biopsies esophagus . Received in formalin are three soft to friable, white, red-stippled tissue fragments ranging from 0.25 cm to 0.4 cm in greatest diameter, which are wrapped in paper and submitted in toto in one cassette, three pieces, multiple levels. TS 02/12/2025 4:57 PM EDT [facility] Disclaimer Unless otherwise specified, all tissue is 10% NB formalin fixed and paraffin embedded. 02/12/2025 4:57 PM EDT [facility] Tissue Gastric corpus structure / Unknown 02/11/2025 11:14 AM EDT 02/11/2025 12:34 PM EDT Tissue specimen (specimen) Esophageal structure / Unknown 02/11/2025 11:15 AM EDT 02/11/2025 12:34 PM EDT us Zeny Bailey MD LAB PATHOLOGY ORDERABLES Final Result [facility] [address] [place] [address], * Comprehensive metabolic panel (10/09/2024 12:20 PM EST) Sodium 140 133 - 145 mmol/L LAB CHEMISTRY METHOD 10/09/2024 3:52 PM [facility] Potassium 4.5 3.5 - 5.5 mmol/L LAB CHEMISTRY METHOD 10/09/2024 3:52 PM [facility] Chloride 107 96 - 110 mmol/L LAB CHEMISTRY METHOD 10/09/2024 3:52 PM [facility] CO2 28 21 - 32 mmol/L LAB CHEMISTRY METHOD 10/09/2024 3:52 PM [facility] Anion Gap 5 3 - 11 LAB CHEMISTRY METHOD 10/09/2024 3:52 PM [facility] Glucose 93 70 - 100 mg/dL LAB CHEMISTRY METHOD 10/09/2024 3:52 PM [facility] BUN 19 5 - 25 mg/dL LAB CHEMISTRY METHOD 10/09/2024 3:52 PM [facility] Creatinine 0.83 0.50 - 1.10 mg/dL LAB CHEMISTRY METHOD 10/09/2024 3:52 PM [facility] eGFR 83 >=60 mL/min/1. 73m2 LAB CHEMISTRY METHOD 10/09/2024 3:52 PM [facility] Comment:Calculation based on the??Chronic Kidney Disease Epidemiology Collaboration (CKD-EPI) equation refit??without adjustment for race. BUN/Creatinine Ratio 22.9 LAB CHEMISTRY METHOD 10/09/2024 3:52 PM [facility] Calcium 9.4 8.5 - 10.5 mg/dL LAB CHEMISTRY METHOD 10/09/2024 3:52 PM [facility] AST (SGOT) 22 10 - 42 unit/L LAB CHEMISTRY METHOD 10/09/2024 3:52 PM [facility] ALT (SGPT) 28 10 - 60 unit/L LAB CHEMISTRY METHOD 10/09/2024 3:52 PM [facility] Alkaline Phosphatase 54 42 - 121 unit/L LAB CHEMISTRY METHOD 10/09/2024 3:52 PM EST [facility] Total Protein 7.4 6.0 - 8.0 g/dL LAB CHEMISTRY METHOD 10/09/2024 3:52 PM EST [facility] Albumin 4.2 3.2 - 5.0 g/dL LAB CHEMISTRY METHOD 10/09/2024 3:52 PM EST [facility] Total Bilirubin 0.4 0.0 - 1.4 mg/dL LAB CHEMISTRY METHOD 10/09/2024 3:52 PM EST [facility] Blood Venous blood specimen / Unknown Venipuncture / Unknown 10/09/2024 12:20 PM EST 10/09/2024 2:43 PM EST Marta Ybarra NP LAB BLOOD ORDERABLES Final Re sult [facility] [address] [place] [address], * Colonoscopy (07/15/2022) Pathologist [facility] Colonoscopy abstracted, no interpretation Anatomical Region Laterality Modality Other [facility] Provider HEALTH MAINTENANCE Final Result * Hepatitis C Screening (06/07/2022) [facility] Hepatitis C Screening abstracted [facility] Provider HEALTH MAINTENANCE Final Result * HIV Screening (03/02/2022) [facility] HIV Screening abstracted [facility] Provider HEALTH MAINTENANCE Final Result * (ABNORMAL) Lipid panel (03/02/2022) [facility] LDL/HDL Ratio 2 0 - 4 Triglycerides 37 0 - 150 mg/dL Cholesterol 218(A) 0 - 200 mg/dL HDL 104 >=40 mg/dL LDL Cholesterol 107(A) 0 - 100 mg/dL Blood Venous blood specimen / Unknown Historical Provider LAB BLOOD ORDERABLES Aylin l Result * Cervical Cancer Screening: HPV (02/20/2021) Cervical Cancer Screening: HPV abstracted, negative us Historical Provider MD HEALTH MAINTENANCE Final Result from Last 3 Months or Most Recently Relevant to Health Maintenance Insurance [facility] [place] [id number] [facility] Care Teams 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
--- OUTSIDE RECORDS SUMMARY | 2025-02-21 09:00 | XMS_ITS | Data Portability ---
Author Organization [facility], [address] Address [address] [place] [address] Assessment No assessment recorded. Plan of Treatment Reminders Order Date Submit Date Provider Last Modified By Organization Details Last Modified Time Details Appointments None record ed. Lab None record ed. Referral None record ed. Procedures None record ed. Surgeries None record ed. Imaging None record ed. Medication Orders None record ed. Patient TargetsNo targets recorded. Patient InstructionsNo instructions recorded. Reason for Referral None Reported. Medical Equipment None Reported. Medications Name Sig Start Date Stop Date Status Note LastModified by Organization Details LastModified Time paroxetine 10 mg tablet TAKE 1 TABLET BY MOUTH EVERYDAY AT BEDTIME active Not Available Not Available No t Available clarithromyc in 500 mg tablet TAKE 1 TABLET BY MOUTH TWICE A DAY FOR 10 DAYS active Not Available Not Available No t Available amlodipine 2.5 mg tablet TAKE 1 TABLET BY MOUTH EVERY DAY active Not Available Not Available No t Available losartan 100 mg tablet TAKE 1 TABLET BY MOUTH EVERY DAY active Not Available Not Available No t Available Gavilyte-C 240 gram-22.72 gram-6.72 gram-5.84 gram oral solution USE DIRECTED active Not Available Not Available No t Available Qbrexza 2.4 % towelette PLEASE SEE ATTACHED FOR DETAILED DIRECTIONS active Not Available Not Available N ot Available Vitals None Recorded Social History None recorded. Functional Status None recorded. Mental Status None recorded. Family History Nothing Reported. Medical History No medical history recorded. Gynecological HistoryNo gynecological history recorded. Obstetrics History GPAL:G 0 P 0 0 0 0 Past Encounters Encounter ID Performer Location Encounter Start Date Encounter Closed Date Diagnosis/Indication Diagnosis SNOMED-CT Code Diagnosis ICD10 Code Diagnosis Note [id number] _[address] [address] 06/18/2021 15:48:16 06/18/2021 16:37:43 [id number] [address] [facility] [place] [address] 05/15/2018 13:49:02 05/15/2018 14:07:05 [id number] [address] [facility] [place] [address] 11/14/2019 10:54:58 11/14/2019 11:35:58 [id number] Carl Luis MD [address] [facility] [place] [address] 03/30/2023 11:11:49 03/30/2023 11:36:25 Left without being seen [id number] 9102 Z53.21 Patient decided not to continue with visit and plans to see PCPI did not see or examine patient, patient never brought to room Health Concerns Section Related Observation LastModified by Organization Detai ls LastModified Time None Recorded Concern Status LastModified by Organization Details LastModified Time None Recorded Advance Directives Directive None Recorded Payers Encounter Date Sequence Insurance Name Policy Number Policy Maki Covered Member ID Maki Member ID Guarantor Name 11/14/2019 1 [facility] [id number] Calista O O Vanzandt [id number] Calista O Vanzandt 06/18/2021 1 [facility] [id number] Calista O O Vanzandt [id number] Calista O Vanzandt 03/30/2023 1 [facility] [id number] Calista O O Vanzandt [id number] Calista O Vanzandt OBGyn Episode No OBEpisode recorded.
--- OUTSIDE RECORDS SUMMARY | 2025-02-21 09:00 | XMS_ITS | Patient Health Record ---
Author Organization [facility] Address [address] [facility] [place] [address] Care Team Providers Care Lathe Puller Name Role Phone Ferny ALEJANDRA, [facility] Primary Care Provider Phillip Steel Unavailable [phone] Allergies No Known Allergies Reason For Referral No Information Medications Medication SIG (Take, Route, Frequency, Duration) Notes Start Date End Date Status Linzess 290 MCG 1 capsule at least 3 0 minutes before the first meal of the day on an empty stomach Orally Once a day for 30 day(s) Active Losartan Potassium 100 MG 1 tablet Orally Once a day Active Probiotic Active Omeprazole Active Vitamin B 12 Active Diclofenac Gel Active Social History Tobacco Use: Social History Observation Description Date Details (start date - stop date) Never Smoker NA - NA Tobacco Use/Smoking Question Answer Notes Are you a: nonsmoker Additional Findings: Tobacco Non-User Current no n-smoker Alcohol Screen Question Answer Notes Did you have a drink containing alcohol in the p ast year? Yes Points 0 Interpretation Negative Tobacco use other than smoking: Question Answer Notes Are you an other tobacco user? No Problems Problem Type SNOMED Code ICD Code Onset Dates Problem Status W/U Status Risk Notes Problem Localized, primary osteoarthritis of the ankle and/or foot (883519973) Primary osteoarthrit is, right ankle and foot (M19.071) Active confirmed Problem Localized, primary osteoarthritis of the ankle and/or foot (875316480) Primary osteoarthrit is, left ankle and foot (M19.072) Active confirmed Problem Acquired hammer toe of right foot (3131956930298671) Other hammer toe(s) (acquired), right foot (M20.41) Active confirmed Problem Acquired hammer toe of left foot (7286654650311626) Other hammer toe(s) (acquired), left foot (M20.42) Active confirmed Plan Of Treatment Pending Test Test Name Order Date X ray : Foot, left 3V 12/08/2021 X ray : Foot, right 3V 12/08/2021 X ray : Ankle, right 3V 12/08/2021 Insurance Providers Payer Name Payer Address Payer Phone Subscriber Number Group Number Insured Name Patient Relationship to Insured Coverage Start Date Coverage End Date [facility] [address] [place] [address] [id number] Calista Kennedy Self - patient is the insured Medical (General) History Medical History History ICD Code Measles Chicken Pox High Blood Pressure Surgical History Surgery Date(Month/Year) 12/15/1991 appendix 1990
== END 2025-02-21 08:34 | disposition home or self-care (01) ==
LOC: HO.MAMMO 08:33
PROVIDERS: PCP Internal Medicine; Visit Provider Internal Medicine
DX: Z12.31 Encounter for screening mammogram for malignant neoplasm of breast (principal)
CPT/HCPCS: 77063; 77067

== ENCOUNTER → 2025-02-21 08:45 | Outpatient (BNV) | payer OTHER, SELFPAY | PROVIDERS: PCP Internal Medicine; Visit Provider Internal Medicine | DX: Z12.31 Encounter for screening mammogram for malignant neoplasm of breast (principal) | CPT/HCPCS: 77063; 77067 ==

== ENCOUNTER 2025-04-15 12:39 | Outpatient (AMB) | payer OTHER, SELFPAY ==
--- NOTE | 2025-04-15 13:24 | A.OFFPC_ITS ---
Vital Signs 04/15/25 13:27 Height 5 ft 4 in Weight 145 lb BMI 24.9 BP 118/76 Blood Pressure Location Rt brachial Position Sitting Respiration 18 Pulse 66 Pulse Source Pulse Oximeter Temp 98.2 F Temp Source Oral Pulse Oximetry (%) 98 Oxygen Delivery Method Room Air Intake Visit Reasons: CAre review Intake Note: Pt is here today for a follow up visit to discuss some questions. Allergies No Known Allergies [No Known Allergies*] Allergy (Verified 08/03/24 11:52) Medication List - Last Reconciled 04/15/25 by Zeny Wick MD estradiol (Sandra) 1 patch transdermal 2XW [organic digest chewable enzyme 2 in the AM] [probiotics PO] progesterone micronized 100 mg PO QAM prucalopride 2 mg PO DAILY rhubarb root extract (Estrovera) mg PO Tobacco use date assessed: 04/15/25 Dental Screening Dental Screen Date: 04/15/25 Did you have a dental visit in the last 12 months?: Yes Did you have a dental problem in the last 6 months where you did not have access to dental care?: No Was dental information given to patient?: Patient has dentist HPI CAre review HPI Details Patient presents for the follow-up. She was found to have elevated TSH level a few months ago. Patient reports feeling tired but denies any change in her weight. 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 1. Little interest or pleasure in doing things: several days Source: Developed by Drs. Emigdio Nash, Roxanne Carson, Curtis Pena and colleagues, with an educational renae from [email or web address]. Thrive Questionnaire Date Thrive assessed: 04/15/25 I am a: Patient What is your living situation today?: I have a steady place to live Within the past 12 months, did the food you bought not last and you didn't have the money to get more?: Often true Within the past 12 months, did you worry whether your food would run out before you got money to buy more?: Never true Do you have trouble paying for medicines?: No Do you have trouble getting transportation to medical appointments?: No Do you have trouble paying your heating and electricity bill?: No Do you have trouble taking care of your child, family member or friend?: No Do you have trouble with day-to-day activities such as bathing, preparing meals, shopping, managing finances, etc.?: No Are you currently unemployed and looking for a job?: No Are you interested in more education?: No Please select the resources that you would like help with: None Currently or been in a relationship where the following occur: No concerns reported THRIVE Score: 1 AUDIT C Alcohol Use Questionnaire (AUDIT-C) 1. How often do you have a drink containing alcohol?: Never 2. How many drinks containing alcohol do you have on a typical day when you are drinking?: 1 or 2 3. How often do you have six or more drinks on one occasion?: Never Total Score: 0 EUNICE-7 AMB Questionnaire EUNICE-7 Date EUNICE - 7 assessed: 04/15/25 Feeling nervous, anxious, or on edge: 1 = Several days Not being able to stop or control worryin = Several days Worrying too much about different things: 0 = Not at all Trouble relaxin = Not at all Being so restless that it is hard to sit still: 0 = Not at all Becoming easily annoyed or irritable: 0 = Not at all Feeling afraid as if something awful might happen: 0 = Not at all Total EUNICE-7 score (0-4 normal; 5-9 mild; 10-14 moderate; 15-21 severe): 2 Source: Developed by Drs. Emigdio Nash, Curtis Jorgensen and colleagues, with an educational renae from [email or web address]. EUNICE-7 Assessment Billing EUNICE-7 Assessment Tool: EUNICE-7 Assessment 51157 Review of Systems Const All systems reviewed & are unremarkable except as noted in HPI and below Eyes Reports no additional complaints Card Reports no additional complaints Resp Reports no additional complaints GI Reports no additional complaints Reports no additional complaints Physical exam (Primary Care) Vital Signs: Last Vital Signs Temp 98.2 F 04/15/25 13:27 Pulse 66 04/15/25 13:27 Resp 18 04/15/25 13:27 BP 118/76 04/15/25 13:27 Pulse Ox 98 04/15/25 13:27 Oxygen Delivery Method Room Air 04/15/25 13:27 BMI result Body Mass Index 24.9 Tobacco/Smoking Status: Tobacco use Status Tobacco use date assessed 04/15/25 04/15/25 13:45 Patient Tobacco Use Status Former Tobacco user 04/15/25 13:25 e-Cigarette/Vaping Use Never Used 04/15/25 13:25 Thrive Assessment: Date of Thrive Assessment Date Thrive assessed 04/15/25 04/15/25 13:45 Currently or been in a relationship where the following occur: No concerns reported Const General: no acute distress HENMT Ears: hearing grossly normal bilaterally Face and sinus: Yes normal facial exam Mouth: Normal oral and palatal mucosa present Throat: Yes posterior oropharynx normal Eyes General: appearance normal, both eyes and all related structures Neck Neck: Yes supple Thyroid: diffusely enlarged Resp Effort & Inspection: normal respiratory effort Auscultation: clear to auscultation bilaterally Cardio Rhythm: regular rhythm Heart sounds: S1 normal heart sound present and S2 normal heart sound present Coding Level of Care Code Est Pt Level 3 (18419) Diagnoses Hypothyroid E03.9 Annual physical exam Z00.00 Additional Codes EUNICE-7 Assessment Billing - EUNICE-7 Assessment Tool: EUNICE-7 Assessment 57389 ([id number]) Assessment & Plan Assessment & Plan (1) Hypothyroid: Code(s): E03.9 - Hypothyroidism, unspecified Category: Medical Plan: Check TSH 3 T3 and T4 level, obtain thyroid ultrasound (2) Annual physical exam: Code(s): Z00.00 - Encounter for general adult medical examination without abnormal findings Category: Medical Plan: Return for physical in 6 months Orders: Orders TSH reflex Free T4 Today E03.9 - Hypothyroidism, unspecified, Z00.00 - Encounter for general adult medical examination without abnormal findings Comprehensive [place]. Panel Fast Today E03.9 - Hypothyroidism, unspecified, Z00.00 - Encounter for general adult medical examination without abnormal findings Complete Blood Count Auto Diff Today E03.9 - Hypothyroidism, unspecified, Z00.00 - Encounter for general adult medical examination without abnormal findings Lipid Panel Today E03.9 - Hypothyroidism, unspecified, Z00.00 - Encounter for general adult medical examination without abnormal findings Triiodothyronine T3 Free Today E03.9 - Hypothyroidism, unspecified, Z00.00 - Encounter for general adult medical examination without abnormal findings Hemoglobin A1c Today E03.9 - Hypothyroidism, unspecified, Z00.00 - Encounter for general adult medical examination without abnormal findings
[2025-04-15 13:27] VITALS: BP 118/76; PULSE 66; RESP 18; TEMP 36.8; O2SAT 98; BMI 24.9
--- OUTSIDE RECORDS SUMMARY | 2025-04-15 14:16 | XMS_ITS | Data Portability ---
Author Organization [facility], [address] Address [address] [place] [address] Assessment No assessment recorded. Plan of Treatment [...] SNOMED-CT Code Diagnosis ICD10 Code Diagnosis Note [id number] [address] [place] [address] 06/18/2021 15:48:16 06/18/2021 16:37:43 [id number] [address] [place] [address] 05/15/2018 13:49:02 05/15/2018 14:07:05 [id number] [address] [place] [address] 11/14/2019 10:54:58 11/14/2019 11:35:58 [id number] Carl Luis MD [address] [place] [address] 03/30/2023 11:11:49 03/30/2023 11:36:25 Left without being seen [id number] 9102 Z53.21 Patient decided not to continue with visit and plans to see PCPI did not see or examine patient, patient never brought to room Health Concerns Section Related Observation LastModified by Organization Detai ls LastModified Time None Recorded Concern Status LastModified by Organization Details LastModified Time None Recorded Advance Directives Directive None Recorded Payers Insurance Date Sequence Insurance Name Policy Number Policy Maki Covered Member ID Maki Member ID Guarantor Name 03/30/2023 1 [facility] [id number] Calista O Chio Cloud [id number] Calista Cloud OBGyn Episode No OBEpisode recorded.
== END 2025-04-15 16:01 | disposition home or self-care (01) ==
LOC: HO.HMCC 12:40
PROVIDERS: PCP Internal Medicine; Visit Provider Internal Medicine
DX: E03.9 Hypothyroidism, unspecified (principal); Z00.00 Encounter for general adult medical examination without abnormal findings

== ENCOUNTER → 2025-04-15 12:39 | Outpatient (BNVA) | payer OTHER, SELFPAY | PROVIDERS: PCP Internal Medicine; Visit Provider Internal Medicine | DX: E03.9 Hypothyroidism, unspecified (principal); Z13.30 Encounter for screening examination for mental health and behavioral disorders, unspecified | CPT/HCPCS: 96127 ==

== ENCOUNTER 2025-04-17 08:02 | Outpatient (REF) | payer OTHER, SELFPAY ==
--- OUTSIDE RECORDS SUMMARY | 2025-04-17 08:05 | XMS_ITS | Data Portability ---
Author Organization [facility], [address] Address [address] [place] [address] Assessment No assessment recorded. Plan of Treatment [...] SNOMED-CT Code Diagnosis ICD10 Code Diagnosis Note [id number] [address] [place] [address] 06/18/2021 15:48:16 06/18/2021 16:37:43 [id number] [address] [place] [address] 05/15/2018 13:49:02 05/15/2018 14:07:05 [id number] [address] [place] [address] 11/14/2019 10:54:58 11/14/2019 11:35:58 [id number] Carl Luis MD [address] [place] [address] 03/30/2023 11:11:49 03/30/2023 11:36:25 Left without being seen [id number] 9102 Z53.21 Patient decided not to continue [...] Maki Member ID Guarantor Name 03/30/2023 1 [facility] [id number] Calista O Chio Cloud [id number] Calista Cloud OBGyn Episode No OBEpisode recorded.
[2025-04-17 10:27] LABS: MANUAL DIFF FLAG NO
[2025-04-17 10:40] LABS: Estimated Average Glucose 126 mg/dL
[2025-04-17 10:41] LABS: Basophils Percent Auto 0.8 % (0-2); Eosinophils Absolute Auto 0.1 X10*3/uL (0.0-0.4); Eosinophils Percent Auto 2.6 % (0-4); Hematocrit 37.9 % (37.0-47.0); Hemoglobin 12.1 g/dl (12.0-16.0); Imm Gran Abs Auto 0.01 X10*3/uL (0.00-0.03); Imm Gran Pct Auto 0.2 % (0.0-0.4); Lymphocytes Absolute Auto 2.8 X10*3/uL (1.2-4.9); Lymphocytes Percent Auto 54.9 % (20-40); Mean Corpuscular HGB Conc 31.9 g/dl (31.0-35.0); Mean Corpuscular Hemoglobin 28.1 pg (27.0-33.0); Mean Corpuscular Volume 87.9 fL (80.0-98.0); Mean Platelet Volume 13.7 fL (9.4-12.3); Monocytes Absolute Auto 0.5 X10*3/uL (0.1-1.2); Monocytes Percent Auto 9.3 % (2-11); Neutrophils Absolute Auto 1.6 x10*3/uL (2.0-8.3); Neutrophils Percent Auto 32.2 % (45-73); Platelet Count 143 X10*3/uL (160-400); Red Blood Count 4.31 X10*6/uL (4.20-5.50); Red Cell Distribution Width 13.7 % (11.0-16.0); White Blood Count 5.1 X10*3/uL (4.8-10.8)
[2025-04-17 10:53] LABS: Alanine Aminotransferase 25 U/L (0-31); Albumin Level 4.6 g/dL (3.5-5.0); Alkaline Phosphatase 53 U/L (39-117); Anion Gap 9 (12-20); Aspartate Amino Transferase 29 U/L (5-31); Bilirubin Total 0.5 mg/dL (0.0-1.0); Blood Urea Nitrogen 11 mg/dL (9-16); Calcium 9.4 mg/dL (8.4-10.2); Carbon Dioxide 26 mmol/L (22-29); Chloride 110 mmol/L (96-108); Cholesterol 225 mg/dL (<200); Estimated Glomerular Filt Rate > 60; Glucose Fasting 90 mg/dL (60-99); HDL Cholesterol 79 mg/dL (>40); LDL Cholesterol Calculated 137 mg/dL (<100); Potassium 3.7 mmol/L (3.3-5.1); Sodium 141 mmol/L (135-145); Total Protein 7.2 g/dL (6.5-8.0); Triglycerides 47 mg/dL (<150)
[2025-04-18 04:20] LABS: Triiodothyronine T3 Free 3.5 pg/mL (2.3-4.2)
== END 2025-04-17 08:03 | disposition home or self-care (01) ==
LOC: HO.HMGCLDS 08:02
PROVIDERS: PCP Internal Medicine; Visit Provider Internal Medicine
DX: E03.9 Hypothyroidism, unspecified (principal); L65.9 Nonscarring hair loss, unspecified; Z00.00 Encounter for general adult medical examination without abnormal findings; R63.4 Abnormal weight loss
CPT/HCPCS: 36415; 80053; 80061; 83036; 84443; 84481; 85025

== ENCOUNTER 2025-05-21 11:27 | Outpatient (REF) | payer OTHER, SELFPAY ==
--- NOTE | ~2025-05-21 | US_ITS ---
EXAMINATION: US THYROID HISTORY: E04.9 - Nontoxic goiter, unspecified TECHNIQUE: Real-time grayscale ultrasound imaging was performed and images were reviewed. COMPARISON: Correlation is made with a CT of the neck with contrast dated 01/10/2023. FINDINGS: SIZE: The right thyroid lobe measures 4.6 x 1.2 x 1.6 cm. The left thyroid lobe measures 4.3 x 1.0 x 1.9 cm. The isthmus measures 3 mm. FLOW: Flow to the gland is normal. ECHOGENICITY: The echotexture of the gland is homogeneous. NODULES: No nodules are identified. US/US thyroid IMPRESSION: Unremarkable thyroid ultrasound. ACR TI-RADS Guidelines TR1 (0 points): Benign, No follow-up or biopsy required TR2 (2 points): Not Suspicious, No biopsy or follow up indicated TR3 (3 points): Mildly Suspicious, FNA if >= 2.5 cm, Follow if >= 1.5 cm TR4 (4-6 points): Moderately Suspicious, FNA if >= 1.5 cm, Follow if >= 1.0 cm TR5 (>=7 points): Highly Suspicious, FNA if >= 1.0 cm, Follow if >= 0.5 cm Electronically signed by: Emigdio Saavedra MD 05/21/2025 11:45 AM EDT
--- OUTSIDE RECORDS SUMMARY | 2025-05-21 12:48 | XMS_ITS | Encounter Summary ---
Author Organization [facility] [place] [address] Care Team Providers Care Compliance Assistant Name Role Phone Zeny Wick MD Primary Care Provider [phone] Encounter Details Date Type Department Care Team (Late st Contact Info) Description 05/20/2025 Telephone Gastroenterology - [address] [place] [id number] Zeny Bailey MD [address] [place] [address] Social History Tobacco Use Types Packs/Day Years Used Date Smoking Tobacco: Former Smokeless Tobacco: Never Alcohol Use Standard Drinks/Week Comments Not Currently 0 (1 standard drink = 0.6 oz pur e alcohol) Housing Instability Answer Date Recorde d Are you worried that in the next 2 months you may not have stable housing? No 04/11/2025 Food Access & Nutrition Answer Date Rec orded Do you have access to a vari ety of food including fruits and vegetables? Yes 04/11/2025 Health Literacy Answer Date Recorded How often do you need to hav e someone help you when you read instructions, pamphlets, or other written material from your doctor or pharmacy? Never 04/11/2025 Caregiver: How often do you need to have someone help you when you read instructions, pamphlets, or other written material from your doctor or pharmacy? Not on file 04/11/2025 Financial Risk Answer Date Recorded How hard is it for you to pa y for the very basics like food, housing, medical care, and air conditioning / heating? Not very hard 04/11/2025 Transportation Answer Date Recorded Has the lack of transportati on kept you from meetings, work, or from getting things needed for daily living? No Has the lack of transportati on kept you from medical appointments or from getting medications? No 04/11/2025 Social Isolation Answer Date Recorded How often do you feel lonely or isolated from th ose around you? Never 04/11/2025 Food Risk Answer Date Recorded Within the past 12 months we worried whether our food would run out before we got money to buy more. Never true 04/11/2025 Within the past 12 months th e food we bought just didn't last and we didn't have money to get more. Never true 04/11/2025 Dependent Care Answer Date Recorded Do you need help finding or paying for care for your loved ones. For example, summer child caregiver or elderly care for an older adult? No 04/11/2025 Education Answer Date Recorded Do you think completing more education or training, like finishing a GED, going to college, or learning a trade, would be helpful for you? No 04/11/2025 Employment and Income Answer Date Recor ded During the last four weeks, have you been actively looking for work? No 04/11/2025 Living Situation Answer Date Recorded What is your living situation? 0 04/11/2025 Interpersonal Safety Answer Date Record ed Physical Abuse 02/11/2025 Verbal Abuse 02/11/2025 Comments No Sex and Gender Information Value Date Recorded Sex Assigned at Female 02/11/2025 10:25 AM EDT Legal Sex Female 8:57 AM EST Gender Identity Female 02/11/2025 10:25 AM EDT Sexual Orientation Straight 02/11/2025 10 :25 AM EDT documented as of this encounter Progress Notes * Beverly Tejada - 05/20/2025 3:37 PM EDT Pt requesting new sibo test documented in this encounter Plan of Treatment Not on file documented as of this encounter Visit Diagnoses Not on filedocumented in this encounter Additional Health Concerns Assessment Noted Time PHQ-9 Depression Total Score: 0 04/11/20 25 9:59 AM EDT documented as of this encounter Care Teams Compliance Assistant Relationship Specialty Start Date End Date Zeny Wick MD [address] [place] [address] PCP - General Internal Medicine 09/14/24 documented as of this encounter
--- OUTSIDE RECORDS SUMMARY | 2025-05-21 12:48 | XMS_ITS | Clinical Summary ---
Author Organization [facility] Address [address] [address] Care Team Providers Care Test Design Engineer Name Role Phone Jorge L Mazariegos MD Primary Care Provider [phone] Social History Tobacco Use Types Packs/Day Years [...] of 1 - PCV) 018 Influenza Vaccine (#1) 2025 Insurance [address] [facility] [place] [facility] [address] [place] [address] [facility] Care Teams Test Design Engineer Relationship Specialty Start Date End Date Jorge L Mazariegos MD [address] [facility] [address] [place], [place] PCP - General Internal Medicine 12/22/21
--- OUTSIDE RECORDS SUMMARY | 2025-05-21 12:48 | XMS_ITS | Patient Health Record ---
Author Organization [facility] Address [address] [facility] [place] [address] Care Team Providers Care Art Objects Repairer Name Role Phone Ferny ALEJANDRA, [facility] Primary Care Provider Phillip Steel Unavailable [phone] Allergies No Known Allergies Reason For Referral No Information Medications Medication SIG (Take, Route, Frequency, Duration) Notes Start Date End Date Status Linzess 290 MCG 1 capsule at least 3 0 minutes before the first meal of the day on an empty stomach Orally Once a day; Duration: 30 day(s) Activ e Losartan Potassium 100 MG 1 tablet Orally [...] primary osteoarthritis of the ankle and/or foot (055564430) Primary osteoarthrit is, right ankle and foot (M19.071) Active confirmed Problem Localized, primary osteoarthritis of the ankle and/or foot (034910723) Primary osteoarthrit is, left ankle and foot (M19.072) Active confirmed Problem Acquired hammer toe of right foot (4796742887419624) Other hammer toe(s) (acquired), right foot (M20.41) Active confirmed Problem Acquired hammer toe of left foot (1212775426110686) Other hammer toe(s) (acquired), left foot (M20.42) Active confirmed Plan Of Treatment Pending Test Test Name Order Date X ray : Foot, left 3V 12/08/2021 X ray : Foot, right 3V 12/08/2021 X ray : Ankle, right 3V 12/08/2021 Insurance Providers Payer Name Payer Address Payer Phone Subscriber Number Group Number Insured Name Patient Relationship to Insured Coverage Start Date Coverage End Date [facility] [address] [place] [address] [phone] [id number] Calista Kennedy Self - patient is the insured Medical (General) History Medical History History ICD Code Measles Chicken Pox High Blood Pressure Surgical History Surgery Date(Month/Year) 12/15/1991 appendix 1990
--- OUTSIDE RECORDS SUMMARY | 2025-05-21 12:48 | XMS_ITS | Data Portability ---
Author Organization [facility], [address] Address [address] [place] [address] Assessment No assessment recorded. Plan of Treatment [...] SNOMED-CT Code Diagnosis ICD10 Code Diagnosis Note [id number] [facility] [place] [address] 06/18/2021 15:48:16 06/18/2021 16:37:43 [id number] [address] [place] [address] 05/15/2018 13:49:02 05/15/2018 14:07:05 [id number] [address] [place] [address] 11/14/2019 10:54:58 11/14/2019 11:35:58 [id number] Carl Luis MD [address] [place] [address] 03/30/2023 11:11:49 03/30/2023 11:36:25 Left without being seen [id number] 9102 Z53.21 Patient decided not to continue [...] Maki Member ID Guarantor Name 03/30/2023 1 [facility] [id number] Calista Cloud [id number] Calista Cloud OBGyn Episode No OBEpisode recorded.
== END 2025-05-21 11:28 | disposition home or self-care (01) ==
LOC: HO.HMGCX 11:27
PROVIDERS: PCP Internal Medicine; Visit Provider Internal Medicine
DX: E04.9 Nontoxic goiter, unspecified (principal)
CPT/HCPCS: 76536

== ENCOUNTER → 2025-05-21 11:29 | Outpatient (BNV) | payer OTHER, SELFPAY | PROVIDERS: PCP Internal Medicine; Visit Provider Radiology Diagnostic Radiology | DX: E04.9 Nontoxic goiter, unspecified (principal) | CPT/HCPCS: 76536 ==